=== PATIENT | female | born 1945 | race Two or more races ===

== ENCOUNTER 2020-02-19 22:06 | Inpatient (IN) | payer MEDICARE, OTHER ==
[~2020-02-19] VITALS: Ht 160 cm; Wt 86.4 kg
[2020-02-19 22:10] VITALS: BP 155/91
--- NOTE | 2020-02-19 22:31 | Emergency Room Report ---
History of Present Illness General Chief Complaint: Syncope Source: Patient, EMS Present Illness HPI This is a 74-year-old female with a history of diabetes and high blood pressure. She presents with complaint of syncope. She got up and had a syncopal episode. EMS stated that family said that she passed out for about 10 seconds. Better when she lay down. No trauma. When they stood her up to go to the gurney she felt dizzy and lightheaded and had a near syncopal episode. She denies any chest pain. She does have left shoulder pain. She fell last week and had a fracture and was in a sling. No head trauma. No focal deficit. Worse with standing. Better with rest. 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 Patient History Past Medical History: see triage record, old chart reviewed, DM, HTN Past Surgical History: other Pertinent Family History: none Social History: Denies: smoking Last Menstrual Period: unk Now: No Immunizations: other Reviewed Nursing Documentation: PMH: Agreed; PSxH: Agreed Nursing Documentation-PMH Hx Hypertension: Yes Hx Diabetes: Yes Review of Systems Constitutional: Reports: weakness Eye: Denies: eye pain, blurred vision ENT: Denies: ear pain, nose congestion, throat swelling Respiratory: Denies: cough, shortness of breath Cardiovascular: Denies: chest pain, palpitations Gastrointestinal: Denies: abdominal pain, diarrhea, nausea, vomiting Musculoskeletal: Denies: back pain, joint pain Skin: Denies: rash Neurological: Denies: headache, numbness Endocrine: Denies: increased thirst, increased urine Hematologic/Lymphatic: Denies: easy bruising All Other Systems: negative except mentioned in HPI Physical Exam Vital Signs Date Time Temp Pulse Resp B/P (MAP) Pulse Ox O2 Delivery O2 Flow Rate FiO2 02/19/20 22:01 130 19 150/96 (114) 98 Room Air Vitals with high blood pressure and tachycardia Sp02 EP Interpretation: reviewed, normal General Appearance: well appearing, no apparent distress, alert Head: normocephalic, atraumatic Eyes: bilateral eye PERRL, bilateral eye EOMI ENT: hearing grossly normal, normal pharynx Neck: full range of motion, supple, no meningismus Respiratory: chest non-tender, lungs clear, normal breath sounds Cardiovascular #1: regular rate, rhythm, no murmur Gastrointestinal: normal bowel sounds, non tender, no mass, no organomegaly, no bruit, non-distended Musculoskeletal: back normal, normal range of motion, gait/station normal Psychiatric: mood/affect normal Procedures Critical Care Time Critical Care Time Critical care is mandated in this patient who presented with sepsis and COVID infection. Patient require my urgent intervention to attenuate the risks of metabolic collapse which may lead to cardiovascular collapse and . Critical care time is 35 minutes excluding any reportable procedure. Critical care time included evaluation, multiple reevaluation, looking at old charts, interpreting laboratory and diagnostic data, discussing case with patient and family and consultants, and charting. Medical Decision Making Diagnostic Impression: Primary Impression: Syncope Qualified Codes: R55 - Syncope and collapse Additional Impressions: Sepsis Qualified Codes: A41.9 - Sepsis, unspecified organism COVID-19 virus infection UTI (urinary tract infection) Qualified Codes: N30.00 - Acute cystitis without hematuria ACS (acute coronary syndrome) ER Course This patient presents with syncope. Noted to be tachycardic and had a fever here. She is COVID positive. Chest x-ray is clear. She does have a urinary tract infection. Antibiotics given. Because of the COVID infection, she received steroid and Lovenox. EKG shows some nonspecific ST changes. Troponin is intermediate. Aspirin given here. I discussed the case with Dr. Bradley who will admit. EKG Diagnostic Results Rate: tachycardiac Rhythm: NSR ST Segments: other - Nonspecific ST changes inferiorly. Rhythm Strip Diag. Results EP Interpretation: yes Rate: 105 Rhythm: NSR, no PVC's, no ectopy Chest X-Ray Diagnostic Results Chest X-Ray Diagnostic Results : Chest X-Ray Ordered: Yes # of Views/Limited/Complete: 1 View Indication: Shortness of Breath EP Interpretation: Yes Interpretation: no consolidation, no effusion, no pneumothorax, no acute cardiopulmonary disease Impression: No acute disease Electronically Signed by: Go Rdz MD Last Vital Signs Date Time Temp Pulse Resp B/P (MAP) Pulse Ox O2 Delivery O2 Flow Rate FiO2 02/19/20 22:01 130 19 150/96 (114) 98 Room Air Status: improved Disposition: ADMITTED INPATIENT Condition: Serious Go Rdz MD Feb 19, 2020 22:31
[2020-02-19 22:45] LABS: HEMATOCRIT 32.6 % (37.0-47.0); HEMOGLOBIN 10.1 G/DL (12.0-16.0); MEAN CORPUSCULAR VOLUME 115 FL (80-99); PLATELET COUNT 350 K/UL (150-450); RED BLOOD COUNT 2.84 M/UL (4.20-5.40); RED CELL DISTRIBUTION WIDTH 19.1 % (11.6-14.8); WHITE BLOOD COUNT 2.6 K/UL (4.8-10.8)
[2020-02-19] MEDS ORDERED: Acetaminophen 500mg (ES) tab ORAL ONE (22:45)
--- NOTE | 2020-02-19 22:47 | Diagnostic Imaging Report ---
EXAM: XR Chest, 1 View CLINICAL HISTORY: SYNCOPE TECHNIQUE: Frontal view of the chest. COMPARISON: No relevant prior studies available. FINDINGS: Study limited to single AP portable chest radiograph. Borderline to mild cardiac enlargement. Prominence of the upper mediastinum may be secondary to supine and portable radiography. Recommend upright PA and lateral views of the chest when clinically feasible. Negative for focal consolidation, pneumothorax or pleural fluid collections.
[2020-02-19 23:00] LABS: ANION GAP 11 mmol/L (5-15); BLOOD UREA NITROGEN 25 mg/dL (7-18); CARBON DIOXIDE 25 MMOL/L (21-32); CHLORIDE 97 MMOL/L (98-107); POTASSIUM 3.2 MMOL/L (3.5-5.1); SODIUM 133 MMOL/L (136-145)
[2020-02-19 23:06] LABS: APPEARANCE,URINE SLIGHTLY CLOUDY; BILIRUBIN, URINE NEGATIVE (NEGATIVE); GLUCOSE, URINE (UA) NEGATIVE (NEGATIVE); KETONES,URINE 1+ (NEGATIVE); LEUKOCYTE ESTERASE ,URINE 3+ (NEGATIVE); NITRITE,URINE NEGATIVE (NEGATIVE); PH,URINE 5 (4.5-8.0); PROTEIN,URINE 3+ (NEGATIVE); UROBILINOGEN,URINE 1 MG/DL (0.0-1.0)
[2020-02-19 23:08] LABS: COLOR,URINE YELLOW
[2020-02-19 23:11] LABS: ALANINE AMINOTRANSFERASE 30 U/L (12-78); ALBUMIN 3.1 G/DL (3.4-5.0); ALBUMIN/GLOBULIN RATIO 0.8 (1.0-2.7); ALKALINE PHOSPHATASE 88 U/L (46-116); ASPARTATE AMINO TRANSFERASE 60 U/L (15-37)
[2020-02-19 23:30] VITALS: BP 121/65
[2020-02-19] MEDS ORDERED: cefTRIAXone 1 GM in NS 55 ML IVPB ONE (23:45)
[2020-02-20] MEDS ORDERED: Enoxaparin 80mg Inj SUBQ ONE
[2020-02-20] MEDS ORDERED: dexAMETHasone 10mg/ml Inj IV ONE
[2020-02-20] MEDS ORDERED: METFORMIN HCL850 M1 ORAL (00:15)
[2020-02-20] MEDS ORDERED: HYDREA500 MG PO (00:15)
[2020-02-20] MEDS ORDERED: HYDRALAZINE HCL50 MG ORAL (00:15)
[2020-02-20] MEDS ORDERED: METOPROLOL SUCC50 MG ORAL (00:15)
[2020-02-20] MEDS ORDERED: OMEPRAZOLE20 M2 ORAL (00:16)
[2020-02-20] MEDS ORDERED: LEVOTHYROXINE75 MCG ORAL (00:16)
[2020-02-20 00:30] VITALS: BP 105/64
[2020-02-20] MEDS ORDERED: Aspirin Baby 81mg ORAL ONE (00:30)
--- NOTE | 2020-02-20 00:43 | Emergency Room Report ---
Sepsis Event Note Evaluation Current Stage of Sepsis: Sepsis Possible Source: Genitourinary Focused Exam Allergies: Coded Allergies: No Known Allergies (Unverified , 02/19/20) Date Exam Occurred: Feb 20, 2020 Time Exam Occurred: 00:42 Laboratory Studies Laboratory Tests Test 02/19/20 22:20 02/19/20 22:55 White Blood Count 2.6 K/UL (4.8-10.8) L Red Blood Count 2.84 M/UL (4.20-5.40) L Hemoglobin 10.1 G/DL (12.0-16.0) L Hematocrit 32.6 % (37.0-47.0) L Mean Corpuscular Volume 115 FL (80-99) H Mean Corpuscular Hemoglobin 35.6 PG (27.0-31.0) H Mean Corpuscular Hemoglobin Concent 31.0 G/DL (32.0-36.0) L Red Cell Distribution Width 19.1 % (11.6-14.8) H Platelet Count 350 K/UL (150-450) Mean Platelet Volume 9.1 FL (6.5-10.1) Neutrophils (%) (Auto) % (45.0-75.0) Lymphocytes (%) (Auto) % (20.0-45.0) Monocytes (%) (Auto) % (1.0-10.0) Eosinophils (%) (Auto) % (0.0-3.0) Basophils (%) (Auto) % (0.0-2.0) Differential Total Cells Counted 100 Neutrophils % (Manual) 72 % (45-75) Lymphocytes % (Manual) 22 % (20-45) Monocytes % (Manual) 6 % (1-10) Eosinophils % (Manual) 0 % (0-3) Basophils % (Manual) 0 % (0-2) Band Neutrophils 0 % (0-8) Platelet Estimate Adequate Platelet Morphology Normal Hypochromasia 1+ Anisocytosis 1+ Macrocytosis 1+ D-Dimer 17.96 mg/L FEU (0.00-0.49) H Sodium Level 133 MMOL/L (136-145) L Potassium Level 3.2 MMOL/L (3.5-5.1) L Chloride Level 97 MMOL/L (98-107) L Carbon Dioxide Level 25 MMOL/L (21-32) Anion Gap 11 mmol/L (5-15) Blood Urea Nitrogen 25 mg/dL (7-18) H Creatinine 1.0 MG/DL (0.55-1.30) Estimat Glomerular Filtration Rate 54.5 mL/min (>60) Glucose Level 227 MG/DL (74-106) H Calcium Level 8.0 MG/DL (8.5-10.1) L Ferritin 253 NG/ML (8-388) Total Bilirubin 1.0 MG/DL (0.2-1.0) Aspartate Amino Transf (AST/SGOT) 60 U/L (15-37) H Alanine Aminotransferase (ALT/SGPT) 30 U/L (12-78) Alkaline Phosphatase 88 U/L (46-116) Troponin I 0.291 ng/mL (0.000-0.056) C-Reactive Protein, Quantitative 5.0 mg/dL (0.00-0.90) H Pro-B-Type Natriuretic Peptide 1450 pg/mL (0-125) H Total Protein 6.8 G/DL (6.4-8.2) Albumin 3.1 G/DL (3.4-5.0) L Globulin 3.7 g/dL Albumin/Globulin Ratio 0.8 (1.0-2.7) L Urine Color Yellow Urine Appearance Slightly cloudy Urine pH 5 (4.5-8.0) Urine Specific [place] 1.020 (1.005-1.035) Urine Protein 3+ (NEGATIVE) H Urine Glucose (UA) Negative (NEGATIVE) Urine Ketones 1+ (NEGATIVE) H Urine Blood 1+ (NEGATIVE) H Urine Nitrite Negative (NEGATIVE) Urine Bilirubin Negative (NEGATIVE) Urine Urobilinogen 1 MG/DL (0.0-1.0) H Urine Leukocyte Esterase 3+ (NEGATIVE) H Urine RBC 2-4 /HPF (0 - 2) H Urine WBC 20-30 /HPF (0 - 2) H Urine Squamous Epithelial Cells Occasional /LPF Urine Bacteria Few /HPF (NONE) Urine Mucus Occasional /LPF Lactic Acid Level 1.00 mmol/L (0.4-2.0) Vital Signs Last 24 Hour Vital Signs Date Time Temp Pulse Resp B/P (MAP) Pulse Ox O2 Delivery O2 Flow Rate FiO2 02/19/20 23:30 100.9 127 28 121/65 100 Nasal Cannula 2.0 02/19/20 23:29 100.9 02/19/20 22:10 99.5 132 19 155/91 95 Room Air 02/19/20 22:01 130 19 150/96 (114) 98 Room Air Respiratory Exam: Clear Cardiovascular Exam: RRR, S1 Capillary Refill: Less Than 2 Seconds Peripheral Pulse: Strong Pulse Location: Radial Skin Exam: Normal Turgor Go Rdz MD Feb 20, 2020 00:43
[2020-02-20 04:00] VITALS: BP 183/108
[2020-02-20] MEDS: HydrALAZINE 50mg tab ORAL SCH ×3 (05:42→21:18)
[2020-02-20] MEDS: NovoLOG Insulin Flexpen SUBQ SCH ×4 (05:43→21:25)
[2020-02-20 08:00] VITALS: BP 152/78
[2020-02-20] MEDS: Metoprolol Succinate XL 50mg tab ORAL SCH (09:04)
[2020-02-20 11:41] VITALS: BP 160/82
[2020-02-20] MEDS: Hydroxyurea 500mg cap ORAL SCH (11:51)
[2020-02-20] MEDS: Enoxaparin 100mg Inj SUBQ SCH ×2 (11:53→23:27)
--- NOTE | 2020-02-20 13:40 | Infectious Diseases Prog Note ---
Assessment/Plan Assessment/Plan Full consult dictated: A) 1) covid-19 infection +, fevers 2) ? bacterial pna 3) pmh noted 4) allergies - nkda P) 1) ceftriaxone and azithromycin 2) monitor respiratory status 3) may need steroids, remdesivir if becomes hypoxic 4) monitor labs and chest x-ray 5) thank you Subjective Allergies: Coded Allergies: No Known Allergies (Unverified , 02/19/20) Objective Last 24 Hour Vital Signs Date Time Temp Pulse Resp B/P (MAP) Pulse Ox O2 Delivery O2 Flow Rate FiO2 02/20/20 12:00 84 02/20/20 11:41 97.3 89 20 160/82 (108) 95 02/20/20 09:04 107 152/78 02/20/20 09:00 Nasal Cannula 2.0 02/20/20 08:00 97.3 108 20 152/78 (102) 91 02/20/20 08:00 107 02/20/20 05:42 183/108 02/20/20 04:00 90 02/20/20 04:00 96.7 90 19 183/108 (133) 98 02/20/20 01:10 100.0 106 22 116/60 99 Nasal Cannula 2.0 02/20/20 00:53 Nasal Cannula 2.0 02/20/20 00:30 100.0 105 20 105/64 100 Nasal Cannula 2.0 02/20/20 00:00 114 02/19/20 23:30 100.9 127 28 121/65 100 Nasal Cannula 2.0 02/19/20 23:29 100.9 02/19/20 22:30 132 19 Nasal Cannula 2.0 02/19/20 22:10 99.5 132 19 155/91 95 Room Air 02/19/20 22:01 130 19 150/96 (114) 98 Room Air Height (Feet): 5 Height (Inches): 3.00 Weight (Pounds): 190 Microbiology Date/Time Source Procedure Growth Status 02/19/20 22:20 Nasopharynx SARS-CoV-2 RdRp Gene Assay - Final Complete Laboratory Tests Test 02/19/20 22:20 02/19/20 22:55 02/20/20 05:35 02/20/20 11:19 White Blood Count 2.6 K/UL (4.8-10.8) L Red Blood Count 2.84 M/UL (4.20-5.40) L Hemoglobin 10.1 G/DL (12.0-16.0) L Hematocrit 32.6 % (37.0-47.0) L Mean Corpuscular Volume 115 FL (80-99) H Mean Corpuscular Hemoglobin 35.6 PG (27.0-31.0) H Mean Corpuscular Hemoglobin Concent 31.0 G/DL (32.0-36.0) L Red Cell Distribution Width 19.1 % (11.6-14.8) H Platelet Count 350 K/UL (150-450) Mean Platelet Volume 9.1 FL (6.5-10.1) Neutrophils (%) (Auto) % (45.0-75.0) Lymphocytes (%) (Auto) % (20.0-45.0) Monocytes (%) (Auto) % (1.0-10.0) Eosinophils (%) (Auto) % (0.0-3.0) Basophils (%) (Auto) % (0.0-2.0) Differential Total Cells Counted 100 Neutrophils % (Manual) 72 % (45-75) Lymphocytes % (Manual) 22 % (20-45) Monocytes % (Manual) 6 % (1-10) Eosinophils % (Manual) 0 % (0-3) Basophils % (Manual) 0 % (0-2) Band Neutrophils 0 % (0-8) Platelet Estimate Adequate Platelet Morphology Normal Hypochromasia 1+ Anisocytosis 1+ Macrocytosis 1+ D-Dimer 17.96 mg/L FEU (0.00-0.49) H Sodium Level 133 MMOL/L (136-145) L Potassium Level 3.2 MMOL/L (3.5-5.1) L Chloride Level 97 MMOL/L (98-107) L Carbon Dioxide Level 25 MMOL/L (21-32) Anion Gap 11 mmol/L (5-15) Blood Urea Nitrogen 25 mg/dL (7-18) H Creatinine 1.0 MG/DL (0.55-1.30) Estimat Glomerular Filtration Rate 54.5 mL/min (>60) Glucose Level 227 MG/DL (74-106) H Calcium Level 8.0 MG/DL (8.5-10.1) L Ferritin 253 NG/ML (8-388) Total Bilirubin 1.0 MG/DL (0.2-1.0) Aspartate Amino Transf (AST/SGOT) 60 U/L (15-37) H Alanine Aminotransferase (ALT/SGPT) 30 U/L (12-78) Alkaline Phosphatase 88 U/L (46-116) Troponin I 0.291 ng/mL (0.000-0.056) C-Reactive Protein, Quantitative 5.0 mg/dL (0.00-0.90) H Pro-B-Type Natriuretic Peptide 1450 pg/mL (0-125) H Total Protein 6.8 G/DL (6.4-8.2) Albumin 3.1 G/DL (3.4-5.0) L Globulin 3.7 g/dL Albumin/Globulin Ratio 0.8 (1.0-2.7) L Urine Color Yellow Urine Appearance Slightly cloudy Urine pH 5 (4.5-8.0) Urine Specific [place] 1.020 (1.005-1.035) Urine Protein 3+ (NEGATIVE) H Urine Glucose (UA) Negative (NEGATIVE) Urine Ketones 1+ (NEGATIVE) H Urine Blood 1+ (NEGATIVE) H Urine Nitrite Negative (NEGATIVE) Urine Bilirubin Negative (NEGATIVE) Urine Urobilinogen 1 MG/DL (0.0-1.0) H Urine Leukocyte Esterase 3+ (NEGATIVE) H Urine RBC 2-4 /HPF (0 - 2) H Urine WBC 20-30 /HPF (0 - 2) H Urine Squamous Epithelial Cells Occasional /LPF Urine Bacteria Few /HPF (NONE) Urine Mucus Occasional /LPF Lactic Acid Level 1.00 mmol/L (0.4-2.0) POC Whole Blood Glucose 207 MG/DL (74-106) H 251 MG/DL (74-106) H Current Medications Medications (Trade) Dose Ordered Sig/Luis Miguel Route PRN Reason Start Time Stop Time Status Last Admin Dose Admin Dextrose (Dextrose 50%) 25 ml Q30M PRN IV Hypoglycemia 02/20/20 02:45 05/20/20 02:44 Dextrose (Dextrose 50%) 50 ml Q30M PRN IV Hypoglycemia 02/20/20 02:45 05/20/20 02:44 Enoxaparin Sodium (Lovenox) 90 mg Q12H SUBQ 02/20/20 12:00 05/20/20 11:59 02/20/20 11:53 Hydralazine HCl (Apresoline) 50 mg Q8HR ORAL 02/20/20 06:00 05/20/20 05:59 02/20/20 05:42 Hydroxyurea (Hydrea) 500 mg DAILY ORAL 02/20/20 11:45 02/25/20 11:44 02/20/20 11:51 Insulin Aspart (NovoLOG) BEFORE MEALS AND HS SUBQ 02/20/20 06:30 05/20/20 06:29 02/20/20 11:32 Metformin HCl (Glucophage) 850 mg DAILY ORAL 02/20/20 09:00 03/21/20 08:59 02/20/20 09:03 Metoprolol Succinate (Toprol XL) 50 mg DAILY ORAL 02/20/20 09:00 05/20/20 08:59 02/20/20 09:04 Pantoprazole (Protonix) 40 mg DAILY ORAL 02/20/20 09:00 03/21/20 08:59 02/20/20 09:02 Edwina Gan MD Feb 20, 2020 13:40
[2020-02-20 16:00] VITALS: BP 135/76
--- NOTE | 2020-02-20 16:00 | History and Physical Report ---
DATE OF ADMISSION: 02/19/2020 HISTORY OF PRESENT ILLNESS: This is a 74-year-old female with a history of hypertension, diabetes. She had presented to an outside hospital in the last week after having had a syncopal episode at that time. She suffered a fracture of her left arm and was placed in a sling. This is a nonoperative fracture. The patient again had a syncopal episode yesterday and came to this hospital. At this time, she is feeling better. In this hospital, she has also been noted to be COVID-19 positive. She is currently in isolation. Saturations dropped to 87% on room air. PAST HISTORY: Diabetes mellitus and hypertension. SOCIAL HISTORY: No alcohol or tobacco usage. SURGERIES: None. REVIEW OF SYSTEMS: The patient denies any headache, hematemesis, melena, or hematochezia. PHYSICAL EXAMINATION: GENERAL: A 74-year-old female. HEENT: Unremarkable. LUNGS: Clear breath sounds bilaterally. HEART: Normal heart sounds. ABDOMEN: Soft. EXTREMITIES: There is no edema. VITAL SIGNS: Blood pressure is 150/90, heart rate 110, respirations 18, and O2 saturation 92% on 2 L of oxygen. LABORATORY DATA: Lab testing shows hemoglobin of 10, hypochromic indices, white count 2.6, platelet count is normal. Glucose 207. Troponin 0.29. Potassium 3.2. Coags show a D-dimer of 17. Urinalysis negative except a few pus cells. X-ray of chest shows no major findings. IMPRESSION: 1. COVID-19 pneumonia. 2. Elevated D-dimer. 3. Diabetes mellitus. 4. Hypertension. 5. Left elbow fracture. DISCUSSION: Admit to the hospital. We will start full-dose Lovenox given high D-dimer and COVID-19 pneumonia. We will consult ID regarding use of Decadron and remdesivir. Continue current medications and care. We will follow carefully. Flaquito Bradley M.D. DR: MOSHE JOB#: [id number] CC:
[2020-02-20 20:00] VITALS: BP 141/72
[2020-02-20] MEDS: Doxycycline Monohydrate 100mg ORAL SCH (21:17)
[2020-02-20] MEDS: cefTRIAXone 1 GM in D5W 50 ML IVPB SCH (23:26)
[2020-02-21] VITALS: BP 150/78
[2020-02-21 04:00] VITALS: BP_SYST 140; BP_SYST 154; BP_DIAS 50; BP_DIAS 80
[2020-02-21] MEDS: HydrALAZINE 50mg tab ORAL SCH ×3 (05:47→21:43)
[2020-02-21] MEDS: NovoLOG Insulin Flexpen SUBQ SCH ×4 (05:49→21:46)
[2020-02-21 07:15] LABS: HEMATOCRIT 35.2 % (37.0-47.0); HEMOGLOBIN 10.8 G/DL (12.0-16.0); MEAN CORPUSCULAR VOLUME 112 FL (80-99); PLATELET COUNT 357 K/UL (150-450); RED BLOOD COUNT 3.13 M/UL (4.20-5.40); RED CELL DISTRIBUTION WIDTH 18.3 % (11.6-14.8); WHITE BLOOD COUNT 3.4 K/UL (4.8-10.8)
[2020-02-21 07:31] LABS: ANION GAP 7 mmol/L (5-15); BLOOD UREA NITROGEN 16 mg/dL (7-18); CARBON DIOXIDE 31 MMOL/L (21-32); CHLORIDE 102 MMOL/L (98-107); CREATININE 0.8 MG/DL (0.55-1.30); POTASSIUM 3.7 MMOL/L (3.5-5.1); SODIUM 140 MMOL/L (136-145)
[2020-02-21 08:00] VITALS: BP 154/70
[2020-02-21] MEDS: Metoprolol Succinate XL 50mg tab ORAL SCH (08:49)
[2020-02-21] MEDS: Doxycycline Monohydrate 100mg ORAL SCH ×2 (08:50→21:42)
[2020-02-21] MEDS: Hydroxyurea 500mg cap ORAL SCH (08:50)
--- NOTE | 2020-02-21 09:01 | Pulmonology Progress Note ---
Subjective Interval Events: Trop elevated noted Constitutional: Reports: no symptoms HEENT: Repors: no symptoms Respiratory: Reports: no symptoms Cardiovascular: Reports: no symptoms Gastrointestinal/Abdominal: Reports: no symptoms Allergies: Coded Allergies: No Known Allergies (Unverified , 02/19/20) Objective Last 24 Hour Vital Signs Date Time Temp Pulse Resp B/P (MAP) Pulse Ox O2 Delivery O2 Flow Rate FiO2 02/21/20 08:49 105 158/88 02/21/20 08:00 105 02/21/20 05:47 158/88 02/21/20 04:00 94 02/21/20 04:00 99.0 88 20 154/80 (104) 95 02/21/20 00:00 84 02/21/20 00:00 97.8 84 20 150/78 (102) 96 02/20/20 21:18 157/84 02/20/20 21:00 Nasal Cannula 2.0 02/20/20 20:00 96.3 87 20 141/72 (95) 93 02/20/20 20:00 86 02/20/20 19:52 95 Nasal Cannula 3.0 32 02/20/20 16:00 96.8 86 20 135/76 (95) 94 02/20/20 16:00 83 02/20/20 14:06 160/82 02/20/20 12:00 84 02/20/20 11:41 97.3 89 20 160/82 (108) 95 02/20/20 09:04 107 152/78 02/20/20 09:00 Nasal Cannula 2.0 Intake and Output 02/20/20 02/21/20 19:00 07:00 Intake Total 240 ml 500 ml Output Total 300 ml 500 ml Balance -60 ml 0 ml Intake Oral 240 ml 500 ml Output Urine Total 300 ml 500 ml # Voids 2 2 # Bowel Movements 2 General Appearance: no acute distress HEENT: normocephalic Respiratory: chest wall non-tender, lungs clear Cardiovascular: normal peripheral pulses Abdomen: normal bowel sounds Microbiology Date/Time Source Procedure Growth Status 02/19/20 23:10 Blood Blood Culture - Preliminary NO GROWTH AFTER 24 HOURS Resulted 02/19/20 22:40 Blood Blood Culture - Preliminary NO GROWTH AFTER 24 HOURS Resulted 02/19/20 22:20 Nasopharynx SARS-CoV-2 RdRp Gene Assay - Final Complete 02/19/20 22:55 Urine,Clean Catch Urine Culture - Preliminary NO GROWTH AFTER 24 HOURS Resulted Laboratory Tests 02/20/20 11:19: POC Whole Blood Glucose 251H 02/20/20 16:19: POC Whole Blood Glucose 214H 02/20/20 19:41: POC Whole Blood Glucose 208H 02/21/20 05:25: POC Whole Blood Glucose 180H 02/21/20 07:01: White Blood Count 3.4L, Red Blood Count 3.13L, Hemoglobin 10.8L, Hematocrit 35.2L, Mean Corpuscular Volume 112H, Mean Corpuscular Hemoglobin 34.5H, Mean Corpuscular Hemoglobin Concent 30.7L, Red Cell Distribution Width 18.3H, Platelet Count 357, Mean Platelet Volume 7.4, Neutrophils (%) (Auto) , Lymphocytes (%) (Auto) , Monocytes (%) (Auto) , Eosinophils (%) (Auto) , Basophils (%) (Auto) , Neutrophils % (Manual) [Pending], Lymphocytes % (Manual) [Pending], Platelet Estimate [Pending], Platelet Morphology [Pending], Sodium Level 140, Potassium Level 3.7, Chloride Level 102, Carbon Dioxide Level 31, Anion Gap 7, Blood Urea Nitrogen 16, Creatinine 0.8, Estimat Glomerular Filtration Rate > 60, Glucose Level 198H, Calcium Level 8.0L, Troponin I 0.186H Current Medications Medications (Trade) Dose Ordered Sig/Luis Miguel Route PRN Reason Start Time Stop Time Status Last Admin Dose Admin Ceftriaxone Sodium 1 gm/ Dextrose 50 ml @ 100 mls/hr Q24H IVPB 02/20/20 23:00 02/27/20 22:59 02/20/20 23:26 Dextrose (Dextrose 50%) 25 ml Q30M PRN IV Hypoglycemia 02/20/20 02:45 05/20/20 02:44 Dextrose (Dextrose 50%) 50 ml Q30M PRN IV Hypoglycemia 02/20/20 02:45 05/20/20 02:44 Doxycycline Monohydrate (Doxycycline Monohydrate) 100 mg EVERY 12 HOURS ORAL 02/20/20 21:00 02/27/20 20:59 02/21/20 08:50 Enoxaparin Sodium (Lovenox) 90 mg Q12H SUBQ 02/20/20 12:00 05/20/20 11:59 02/20/20 23:27 Hydralazine HCl (Apresoline) 50 mg Q8HR ORAL 02/20/20 06:00 05/20/20 05:59 02/21/20 05:47 Hydroxyurea (Hydrea) 500 mg DAILY ORAL 02/20/20 11:45 02/25/20 11:44 02/21/20 08:50 Insulin Aspart (NovoLOG) BEFORE MEALS AND HS SUBQ 02/20/20 06:30 05/20/20 06:29 02/21/20 05:49 Levothyroxine Sodium (Synthroid) 75 mcg 0630 ORAL 02/21/20 09:00 03/22/20 08:59 02/21/20 08:50 Metformin HCl (Glucophage) 850 mg DAILY ORAL 02/20/20 09:00 03/21/20 08:59 02/21/20 08:50 Metoprolol Succinate (Toprol XL) 50 mg DAILY ORAL 02/20/20 09:00 05/20/20 08:59 02/21/20 08:49 Pantoprazole (Protonix) 40 mg DAILY ORAL 02/20/20 09:00 03/21/20 08:59 02/21/20 08:50 Assessment/Plan Assessment/Plan IMPRESSION: 1. COVID-19 pneumonia. 2. Elevated D-dimer. 3. Diabetes mellitus. 4. Hypertension. 5. Left elbow fracture. 6. Troponin leak. DISCUSSION: Admit to the hospital. Continue full-dose Lovenox given high D-dimer and COVID-19 pneumonia. Seen by ID regarding use of Decadron and remdesivir. Continue current medications and care. I will follow carefully. Will consult cardiology. Meaghan Medrano Omar Syed MD Feb 21, 2020 09:01
--- NOTE | 2020-02-21 11:07 | Diagnostic Imaging Report ---
EXAM: XR Chest, 1 View CLINICAL HISTORY: INFECT TECHNIQUE: Frontal view of the chest. COMPARISON: Chest radiograph on 02/19/2020. FINDINGS: Hardware: None. Lungs/pleura: Prominent lung markings may be secondary to low lung volumes and crowding of bronchovascular structures. Infectious/ inflammatory process is not excluded. No pleural effusion or pneumothorax. Heart/mediastinum: Stable mild enlargement of the cardiomediastinal silhouette. Soft tissues: Unremarkable. Bones: No acute fracture. Upper abdomen: Normal. IMPRESSION: Prominent lung markings may be secondary to low lung volumes and crowding of bronchovascular structures. Infectious/ inflammatory process is not excluded.
[2020-02-21] MEDS: Enoxaparin 100mg Inj SUBQ SCH ×2 (11:56→23:26)
[2020-02-21 12:00] VITALS: BP 178/83
[2020-02-21] MEDS ORDERED: IV Preparation Fee MISC PRN (13:15)
[2020-02-21] MEDS ORDERED: Remdesivir Fact Sheet MISC SCH (13:15)
[2020-02-21 16:00] VITALS: BP 126/63
[2020-02-21] MEDS ORDERED: Loading Dose:Remdesivir 200mg/NS 210ml IV SCH ×2 (16:00)
--- NOTE | 2020-02-21 18:14 | Infectious Diseases Prog Note ---
Assessment/Plan Assessment/Plan Full consult dictated: A) 1) covid-19 infection +, fevers 2) ? bacterial pna 3) pmh noted 4) allergies - nkda P) 1) ceftriaxone, doxycycline - day # 2 2) steroids add remdesivir started - patient consented to remdesivir and clinically indicated at this time 3) monitor respiratory status 4) d/w Dr. Bradley and pharmacy 5) monitor labs and chest x-ray 6) will f/u Subjective Constitutional: Reports: fever, fatigue HEENT: Reports: congestion - mild Respiratory: Reports: shortness of breath - mild Cardiovascular: Denies: chest pain Gastrointestinal/Abdominal: Denies: nausea, vomiting Allergies: Coded Allergies: No Known Allergies (Unverified , 02/19/20) Objective Last 24 Hour Vital Signs Date Time Temp Pulse Resp B/P (MAP) Pulse Ox O2 Delivery O2 Flow Rate FiO2 02/21/20 16:00 100 02/21/20 16:00 98.9 99 20 126/63 (84) 95 02/21/20 13:46 178/83 02/21/20 12:26 97.9 02/21/20 12:00 106 02/21/20 12:00 100.0 106 20 178/83 (114) 94 02/21/20 09:00 Nasal Cannula 2.0 02/21/20 08:49 105 158/88 02/21/20 08:08 95 Nasal Cannula 2.0 28 02/21/20 08:00 97.3 104 22 154/70 (98) 94 02/21/20 08:00 105 02/21/20 05:47 158/88 02/21/20 04:00 94 02/21/20 04:00 99.0 88 20 154/80 (104) 95 02/21/20 00:00 84 02/21/20 00:00 97.8 84 20 150/78 (102) 96 02/20/20 21:18 157/84 02/20/20 21:00 Nasal Cannula 2.0 02/20/20 20:00 96.3 87 20 141/72 (95) 93 02/20/20 20:00 86 02/20/20 19:52 95 Nasal Cannula 3.0 32 Height (Feet): 5 Height (Inches): 3.00 Weight (Pounds): 190 General Appearance: no acute distress HEENT: normocephalic, atraumatic, anicteric Respiratory/Chest: no respiratory distress, no accessory muscle use Cardiovascular: normal rate, regular rhythm Abdomen: normal bowel sounds, soft, non tender, no organomegaly Microbiology Date/Time Source Procedure Growth Status 02/19/20 23:10 Blood Blood Culture - Preliminary NO GROWTH AFTER 24 HOURS Resulted 02/19/20 22:40 Blood Blood Culture - Preliminary NO GROWTH AFTER 24 HOURS Resulted 02/19/20 22:20 Nasopharynx SARS-CoV-2 RdRp Gene Assay - Final Complete 02/19/20 22:55 Urine,Clean Catch Urine Culture - Preliminary NO GROWTH AFTER 24 HOURS Resulted Laboratory Tests Test 02/20/20 19:41 02/21/20 05:25 02/21/20 07:01 02/21/20 16:15 POC Whole Blood Glucose 208 MG/DL (74-106) H 180 MG/DL (74-106) H 267 MG/DL (74-106) H White Blood Count 3.4 K/UL (4.8-10.8) L Red Blood Count 3.13 M/UL (4.20-5.40) L Hemoglobin 10.8 G/DL (12.0-16.0) L Hematocrit 35.2 % (37.0-47.0) L Mean Corpuscular Volume 112 FL (80-99) H Mean Corpuscular Hemoglobin 34.5 PG (27.0-31.0) H Mean Corpuscular Hemoglobin Concent 30.7 G/DL (32.0-36.0) L Red Cell Distribution Width 18.3 % (11.6-14.8) H Platelet Count 357 K/UL (150-450) Mean Platelet Volume 7.4 FL (6.5-10.1) Neutrophils (%) (Auto) % (45.0-75.0) Lymphocytes (%) (Auto) % (20.0-45.0) Monocytes (%) (Auto) % (1.0-10.0) Eosinophils (%) (Auto) % (0.0-3.0) Basophils (%) (Auto) % (0.0-2.0) Differential Total Cells Counted 100 Neutrophils % (Manual) 86 % (45-75) H Lymphocytes % (Manual) 9 % (20-45) L Monocytes % (Manual) 5 % (1-10) Eosinophils % (Manual) 0 % (0-3) Basophils % (Manual) 0 % (0-2) Band Neutrophils 0 % (0-8) Platelet Estimate Adequate Platelet Morphology Normal Hypochromasia 1+ Anisocytosis 2+ Macrocytosis 2+ Sodium Level 140 MMOL/L (136-145) Potassium Level 3.7 MMOL/L (3.5-5.1) Chloride Level 102 MMOL/L (98-107) Carbon Dioxide Level 31 MMOL/L (21-32) Anion Gap 7 mmol/L (5-15) Blood Urea Nitrogen 16 mg/dL (7-18) Creatinine 0.8 MG/DL (0.55-1.30) Estimat Glomerular Filtration Rate > 60 mL/min (>60) Glucose Level 198 MG/DL (74-106) H Calcium Level 8.0 MG/DL (8.5-10.1) L Troponin I 0.186 ng/mL (0.000-0.056) Current Medications Medications (Trade) Dose Ordered Sig/Luis Miguel Route PRN Reason Start Time Stop Time Status Last Admin Dose Admin Acetaminophen (Tylenol) 650 mg Q6H PRN ORAL Temp >100.5 02/21/20 11:45 03/22/20 11:44 02/21/20 11:56 Ceftriaxone Sodium 1 gm/ Dextrose 50 ml @ 100 mls/hr Q24H IVPB 02/20/20 23:00 02/27/20 22:59 02/20/20 23:26 Dexamethasone (Decadron) 6 mg DAILY ORAL 02/21/20 11:45 03/22/20 11:44 02/21/20 11:56 Dextrose (Dextrose 50%) 25 ml Q30M PRN IV Hypoglycemia 02/20/20 02:45 05/20/20 02:44 Dextrose (Dextrose 50%) 50 ml Q30M PRN IV Hypoglycemia 02/20/20 02:45 05/20/20 02:44 Doxycycline Monohydrate (Doxycycline Monohydrate) 100 mg EVERY 12 HOURS ORAL 02/20/20 21:00 02/27/20 20:59 02/21/20 08:50 Enoxaparin Sodium (Lovenox) 90 mg Q12H SUBQ 02/20/20 12:00 05/20/20 11:59 02/21/20 11:56 Hydralazine HCl (Apresoline) 50 mg Q8HR ORAL 02/20/20 06:00 05/20/20 05:59 02/21/20 13:46 Hydroxyurea (Hydrea) 500 mg DAILY ORAL 02/20/20 11:45 02/25/20 11:44 02/21/20 08:50 Insulin Aspart (NovoLOG) BEFORE MEALS AND HS SUBQ 02/20/20 06:30 05/20/20 06:29 02/21/20 16:24 Levothyroxine Sodium (Synthroid) 75 mcg 0630 ORAL 02/21/20 09:00 03/22/20 08:59 02/21/20 08:50 Metformin HCl (Glucophage) 850 mg DAILY ORAL 02/20/20 09:00 03/21/20 08:59 02/21/20 08:50 Metoprolol Succinate (Toprol XL) 50 mg DAILY ORAL 02/20/20 09:00 05/20/20 08:59 02/21/20 08:49 Pantoprazole (Protonix) 40 mg DAILY ORAL 02/20/20 09:00 03/21/20 08:59 02/21/20 08:50 Remdesivir 100 mg/ Sodium Chloride 250 ml @ 250 mls/hr Q24H IV 02/22/20 16:00 02/25/20 16:59 Edwina Gan MD Feb 21, 2020 18:14
[2020-02-21 20:00] VITALS: BP 125/61
--- NOTE | 2020-02-21 21:00 | Consultation ---
DATE OF CONSULTATION: 02/21/2020 CONSULTING PHYSICIAN: Edwina Gan MD. ATTENDING PHYSICIAN: Flaquito Bradley MD. REFERRING PHYSICIAN: Flaquito Bradley MD. REASON FOR CONSULTATION: COVID-19 virus infection and pneumonia. CHIEF COMPLAINT: The patient's chief complaint coming in to the hospital is COVID-19 virus infection, pneumonia, and fevers. HISTORY OF PRESENT ILLNESS: This is a very pleasant 74-year-old female who comes to [facility]. She has hypoxia. She tested positive for COVID-19 virus infection. This is a nasopharyngeal test nucleic acid testing. The patient has on chest x-ray interstitial markings. Infectious or inflammatory process is not excluded. The patient became hypoxic and the patient is being treated for community-acquired pneumonia and bacterial pneumonia with Rocephin and doxycycline. The patient was started on remdesivir today and also steroids, dexamethasone. Infectious Disease consultation was requested for antibiotic management. The patient was seen yesterday and today. MAR was noted. Orders were noted. Notes and records were reviewed. The patient is in COVID isolation. Discussed with RN, pharmacy and Dr. Bradley. REVIEW OF SYSTEMS: CONSTITUTIONAL: As discussed, she had fevers. She had some hypoxia. HEAD AND NECK: No head pain or neck pain. CARDIAC: No chest pain. GASTROINTESTINAL: No nausea, vomiting, or diarrhea. GENITOURINARY: No Cai. PULMONARY: Mild shortness of breath and cough. SKIN: No rash. NEUROLOGIC: No seizures. PAST MEDICAL HISTORY: The patient has a past medical history of diabetes mellitus and hypertension. Also left elbow fracture. She has a history of hypothyroidism. ALLERGIES: She has no known drug allergies and no antibiotic allergies. SOCIAL HISTORY: Negative for smoking, alcohol, or drug abuse. FAMILY HISTORY: Noncontributory. Negative for tuberculosis or cancer. MEDICATIONS: Upon reviewing the MAR, she is on following medications. She is on dexamethasone, remdesivir, levothyroxine, acetaminophen, Rocephin, and doxycycline. She is also on enoxaparin, hydroxyurea, metformin, metoprolol, pantoprazole, insulin, and hydralazine. Outside medications were noted and reconciliated. PHYSICAL EXAMINATION: VITAL SIGNS: Temperature is 98.9, pulse rate 99, respiratory rate 20, and blood pressure 126/63. Saturation 95%. Temperature maximum is 100.9 and pulse rate was high as 105. GENERAL: Alert and responsive, in no acute distress. She is on 2 L. She is sitting in the room. HEAD AND NECK: Oral exam, no thrush. Eye exam, no icterus. Normocephalic. Neck is supple. HEART: Regular. No gallop or murmur. ABDOMEN: Soft. Positive bowel sounds. Nontender. LUNGS: Bilateral rhonchi, possible rales. SKIN: No rash. MUSCULOSKELETAL: No effusion. Legs without cellulitis. PERIPHERAL VASCULAR: No cyanosis or gangrene. GENITOURINARY: No Cai. LINE SITES: Without phlebitis. NEUROLOGIC: Intact and nonfocal. Alert and oriented. LABORATORY DATA: White count is 3.4, hemoglobin 10.8, and platelet count 357,000. Creatinine is 1.0. LFTs were noted. C-reactive protein is 5. Ferritin 253. Blood cultures were negative to date. COVID-19 SARS testing is positive by nasopharyngeal nucleic acid testing. UA had 20-30 white blood cells. Blood cultures are negative. IMAGING STUDIES: Chest x-ray - prominent interstitial markings, possible infectious process, report was noted. ASSESSMENT AND PLAN: 1. The patient has COVID-19 virus infection, possible pneumonia, rule out community-acquired pneumonia, rule out UTI. She has fevers. At this time, we will continue Rocephin and doxycycline. It is day #2 for possible bacterial pneumonia and also urinary tract infection. Monitor fevers. Also remdesivir and dexamethasone started because of COVID-19 virus infection and possible pneumonia and hypoxia. Plan on five days of remdesivir. It is day #1 and dexamethasone, five to ten days. In addition Rocephin and doxycycline will continue for possible bacterial pneumonia pending urine culture results, also cover possible complicated UTI. Check followup labs, chest x-ray, and monitor fevers. Continue COVID-19 virus isolation for now. Case discussed with Dr. Bradley, the RN, and also pharmacy. The patient of note consents to remdesivir, as an investigational drug through her diplomatic interpreter/translator and she accepts the investigational drug and it is indicated at this time because of hypoxia. 2. Diabetes. 3. Hypertension. 4. Hypothyroidism. 5. Thyroid supplementation. 6. COVID isolation. 7. No known drug allergies. 8. Social history is negative. 9. Family history is noncontributory. 10. MAR was noted. 11. Case discussed with RN. 12. Blood sugar and blood pressure control for diabetes and hypertension per primary care team, Dr. Bradley. Thank you, I will follow. Edwina Gan M.D. DR: SANDI JOB#: [id number] CC: MADAN
[2020-02-21] MEDS: cefTRIAXone 1 GM in D5W 50 ML IVPB SCH (23:25)
[2020-02-22] VITALS: BP 155/74
--- NOTE | 2020-02-22 01:30 | Consultation ---
DATE OF CONSULTATION: 02/21/2020 CARDIOLOGY CONSULTATION CONSULTING PHYSICIAN: Bhanu Genao MD. REFERRING PHYSICIAN: Flaquito Bradley MD. REASON FOR CONSULTATION: Elevated troponin level. HISTORY OF PRESENT ILLNESS: This 74-year-old female presented to an outside hospital with a syncopal episode approximately a week ago. She apparently fell out and suffered a left arm fracture. A repeat syncopal episode occurred on the day prior to this admission. The patient was notably hypoxic and had COVID-19 swab positive and hospitalization initiated. It is not clear what workup she had at the outside facility with regard to her cardiovascular status. However, she does not note any history of chest pain or shortness of breath. Patient noted that she did feel dizzy and lightheaded when standing or sitting up and paramedics verified this with regard to her syncopal episode upon this presentation concerning however of the elevated troponin level. PAST MEDICAL HISTORY: Diabetes mellitus and hypertension. She is unaware of where she may have contracted COVID-19 and has not had any fevers, chills, cough, or sputum production. No headache. ALLERGIES: None known. MEDICATIONS: Reviewed and reconciled. SMOKING HISTORY: Negative for smoking, alcohol, or substance abuse. REVIEW OF SYSTEMS: A 10-point review of systems performed, all systems negative other than noted above. PHYSICAL EXAMINATION: VITAL SIGNS: In the emergency room on 02/19/2020, she had a blood pressure 150/96, heart rate of 130, and a respiratory rate of 19 with clinical signs of orthostasis. Today, blood pressure earlier 178/83, presently 126/63, heart rate 99, respiratory rate 20, afebrile. Monitored rhythm reviewed. Sinus and sinus tachycardia noted. Oxygen saturation on 2 L nasal cannula 97%. GENERAL: Patient is alert. No acute distress. HEENT: Oropharynx clear. NECK: Supple. No jugular venous distention grossly noted. LUNGS: Bilateral rhonchi. No wheezing. CARDIAC: Regular rhythm. Rapid rate. Normal S1, S2 with no murmur, rub, or gallop. ABDOMEN: Soft, nontender. EXTREMITIES: No clubbing, cyanosis, or edema. SKIN: Intact. NEUROLOGIC: Nonfocal. LABORATORY DATA: White count 3.4, hemoglobin 10.8, MCV elevated. Sodium 140, potassium 3.7, bicarb 31, BUN 18, creatinine 0.8, glucose 198. Troponin on admission was 0.291. Troponin today is 0.186. IMPRESSION: 1. COVID-19 pneumonia. 2. Orthostatic syncope due to hypovolemia. 3. Acute myocardial ischemia and possible non-ST elevation myocardial infarction, likely precipitated by coronary hypoperfusion in the setting of acute pulmonary infection with underlying atherosclerosis. 4. Type 2 diabetes mellitus with hyperglycemia. 5. Hypertensive heart disease with labile blood pressure. 6. Secondary sinus tachycardia. PLAN: 1. Antiviral therapy per Infectious Disease and primary care physician. 2. Full anticoagulation based on both cardiac and infectious disease parameters. 3. IV steroids with taper per check embosser. 4. Beta blockade with titration. 5. Insulin titration for optimization of glucose control while on steroids. 6. Antiplatelet therapy. 7. Echocardiogram to assess left ventricular function. 8. Defer ischemia workup at this time. Bhanu Genao M.D. DR: CAROLIN JOB#: [id number] CC:
[2020-02-22 04:00] VITALS: BP 147/75
[2020-02-22] MEDS: HydrALAZINE 50mg tab ORAL SCH ×3 (05:46→21:46)
[2020-02-22] MEDS: NovoLOG Insulin Flexpen SUBQ SCH ×4 (06:06→21:23)
[2020-02-22 06:59] LABS: HEMATOCRIT 35.7 % (37.0-47.0); HEMOGLOBIN 11.4 G/DL (12.0-16.0); MEAN CORPUSCULAR VOLUME 114 FL (80-99); PLATELET COUNT 325 K/UL (150-450); RED BLOOD COUNT 3.12 M/UL (4.20-5.40); WHITE BLOOD COUNT 3.7 K/UL (4.8-10.8)
[2020-02-22 08:00] VITALS: BP 157/82
[2020-02-22 08:05] LABS: ALANINE AMINOTRANSFERASE 28 U/L (12-78); ALBUMIN 2.8 G/DL (3.4-5.0); ALBUMIN/GLOBULIN RATIO 0.7 (1.0-2.7); ALKALINE PHOSPHATASE 79 U/L (46-116); ANION GAP 15 mmol/L (5-15); ASPARTATE AMINO TRANSFERASE 47 U/L (15-37); BILIRUBIN,DIRECT 0.1 MG/DL (0.0-0.3); BILIRUBIN,TOTAL 0.8 MG/DL (0.2-1.0); BLOOD UREA NITROGEN 18 mg/dL (7-18); CARBON DIOXIDE 21 MMOL/L (21-32); CHLORIDE 97 MMOL/L (98-107); POTASSIUM 3.5 MMOL/L (3.5-5.1); SODIUM 133 MMOL/L (136-145)
[2020-02-22] MEDS: Hydroxyurea 500mg cap ORAL SCH (09:23)
[2020-02-22] MEDS: Metoprolol Succinate XL 25mg tab ORAL SCH (09:23)
[2020-02-22] MEDS: Doxycycline Monohydrate 100mg ORAL SCH ×2 (09:23→21:23)
[2020-02-22 09:51] LABS: CREATININE 0.9 MG/DL (0.55-1.30)
[2020-02-22 09:52] LABS: CALCIUM 8.2 MG/DL (8.5-10.1)
--- NOTE | 2020-02-22 09:52 | Pulmonology Progress Note ---
Subjective Interval Events: Trop elevated noted Constitutional: Reports: fever, fatigue HEENT: Repors: no symptoms Respiratory: Reports: no symptoms Cardiovascular: Reports: no symptoms Gastrointestinal/Abdominal: Denies: nausea, vomiting Allergies: Coded Allergies: No Known Allergies (Unverified , 02/19/20) Objective Last 24 Hour Vital Signs Date Time Temp Pulse Resp B/P (MAP) Pulse Ox O2 Delivery O2 Flow Rate FiO2 02/22/20 09:23 108 157/82 02/22/20 08:00 97.9 108 20 157/82 (107) 94 02/22/20 05:46 157/77 02/22/20 04:00 91 02/22/20 04:00 98.2 98 20 147/75 (99) 95 02/22/20 00:00 94 02/22/20 00:00 97.8 82 20 155/74 (101) 96 02/21/20 21:43 125/61 02/21/20 21:00 Nasal Cannula 2.0 02/21/20 20:36 97 Nasal Cannula 2.0 28 02/21/20 20:00 92 02/21/20 20:00 97.7 84 20 125/61 (82) 97 02/21/20 16:00 100 02/21/20 16:00 98.9 99 20 126/63 (84) 95 02/21/20 13:46 178/83 02/21/20 12:26 97.9 02/21/20 12:00 106 02/21/20 12:00 100.0 106 20 178/83 (114) 94 Intake and Output 02/21/20 02/22/20 19:00 07:00 Intake Total 350 ml 360 ml Output Total 1800 ml Balance -1450 ml 360 ml Intake Oral 350 ml 360 ml Output Urine Total 1800 ml # Voids 1 4 General Appearance: no acute distress HEENT: normocephalic Respiratory: chest wall non-tender, lungs clear Cardiovascular: normal peripheral pulses Abdomen: normal bowel sounds Microbiology Date/Time Source Procedure Growth Status 02/19/20 23:10 Blood Blood Culture - Preliminary NO GROWTH AFTER 48 HOURS Resulted 02/19/20 22:40 Blood Blood Culture - Preliminary NO GROWTH AFTER 48 HOURS Resulted 02/19/20 22:20 Nasopharynx SARS-CoV-2 RdRp Gene Assay - Final Complete 02/19/20 22:55 Urine,Clean Catch Urine Culture - Final NO GROWTH AFTER 48 HOURS Complete Laboratory Tests 02/21/20 16:15: POC Whole Blood Glucose 267H 02/21/20 20:45: POC Whole Blood Glucose 294H 02/22/20 05:52: POC Whole Blood Glucose 199H 02/22/20 06:15: White Blood Count 3.7L, Red Blood Count 3.12L, Hemoglobin 11.4L, Hematocrit 35.7L, Mean Corpuscular Volume 114H, Mean Corpuscular Hemoglobin 36.6H, Mean Corpuscular Hemoglobin Concent 32.0, Red Cell Distribution Width 18.0H, Platelet Count 325, Mean Platelet Volume 7.3, Neutrophils (%) (Auto) , Lymphocytes (%) (Auto) , Monocytes (%) (Auto) , Eosinophils (%) (Auto) , Basophils (%) (Auto) , Neutrophils % (Manual) [Pending], Lymphocytes % (Manual) [Pending], Platelet Estimate [Pending], Platelet Morphology [Pending], Sodium Level 133L, Potassium Level 3.5, Chloride Level 97L, Carbon Dioxide Level 21, Anion Gap 15, Blood Urea Nitrogen 18, Creatinine [Pending], Estimat Glomerular Filtration Rate [Pending], Glucose Level 213H, Calcium Level [Pending], Magnesium Level 1.5L, Total Bilirubin 0.8, Direct Bilirubin 0.1, Aspartate Amino Transf (AST/SGOT) 47H, Alanine Aminotransferase (ALT/SGPT) 28, Alkaline Phosphatase 79, Pro-B-Type Natriuretic Peptide 1616H, Total Protein 7.0, Albumin 2.8L, Globulin 4.2, Albumin/Globulin Ratio 0.7L, Vitamin B12 Level [ Pending], Folate [Pending] 02/22/20 09:25: Troponin I [Pending] Current Medications Medications (Trade) Dose Ordered Sig/Luis Miguel Route PRN Reason Start Time Stop Time Status Last Admin Dose Admin Acetaminophen (Tylenol) 650 mg Q6H PRN ORAL Temp >100.5 02/21/20 11:45 03/22/20 11:44 02/21/20 11:56 Ceftriaxone Sodium 1 gm/ Dextrose 50 ml @ 100 mls/hr Q24H IVPB 02/20/20 23:00 02/27/20 22:59 02/21/20 23:25 Dexamethasone (Decadron) 6 mg DAILY ORAL 02/21/20 11:45 03/22/20 11:44 02/22/20 09:23 Dextrose (Dextrose 50%) 25 ml Q30M PRN IV Hypoglycemia 02/20/20 02:45 05/20/20 02:44 Dextrose (Dextrose 50%) 50 ml Q30M PRN IV Hypoglycemia 02/20/20 02:45 05/20/20 02:44 Doxycycline Monohydrate (Doxycycline Monohydrate) 100 mg EVERY 12 HOURS ORAL 02/20/20 21:00 02/27/20 20:59 02/22/20 09:23 Enoxaparin Sodium (Lovenox) 90 mg Q12H SUBQ 02/20/20 12:00 05/20/20 11:59 02/21/20 23:26 Hydralazine HCl (Apresoline) 50 mg Q8HR ORAL 02/20/20 06:00 05/20/20 05:59 02/22/20 05:46 Hydroxyurea (Hydrea) 500 mg DAILY ORAL 02/20/20 11:45 02/25/20 11:44 02/22/20 09:23 Insulin Aspart (NovoLOG) BEFORE MEALS AND HS SUBQ 02/20/20 06:30 05/20/20 06:29 02/22/20 06:06 Levothyroxine Sodium (Synthroid) 75 mcg 0630 ORAL 02/21/20 09:00 03/22/20 08:59 02/22/20 05:36 Metformin HCl (Glucophage) 850 mg DAILY ORAL 02/20/20 09:00 03/21/20 08:59 02/22/20 09:23 Metoprolol Succinate (Toprol XL) 75 mg DAILY ORAL 02/22/20 09:00 05/22/20 08:59 02/22/20 09:23 Pantoprazole (Protonix) 40 mg DAILY ORAL 02/20/20 09:00 03/21/20 08:59 02/22/20 09:23 Remdesivir 100 mg/ Sodium Chloride 250 ml @ 250 mls/hr Q24H IV 02/22/20 16:00 02/25/20 16:59 Assessment/Plan Assessment/Plan IMPRESSION: 1. COVID-19 pneumonia. 2. Elevated D-dimer. 3. Diabetes mellitus. 4. Hypertension. 5. Left elbow fracture. 6. Troponin leak. DISCUSSION: Continue full-dose Lovenox given high D-dimer and COVID-19 pneumonia. Seen by ID regarding use of Decadron and remdesivir. Continue current medications and care. I will follow carefully. Seen by cardiology. Meaghan Medrano Omar Syed MD Feb 22, 2020 09:52
[2020-02-22 12:00] VITALS: BP 155/77
[2020-02-22] MEDS: Enoxaparin 100mg Inj SUBQ SCH (12:42)
[2020-02-22 16:00] VITALS: BP 121/53
[2020-02-22] MEDS: Maintenance Dose:Remdesivir 100mg/NS 230ml x 4 Doses IV SCH ×2 (16:26)
[2020-02-22 20:00] VITALS: BP 125/70
[2020-02-22] MEDS: cefTRIAXone 1 GM in D5W 50 ML IVPB SCH (23:57)
[2020-02-23] VITALS: BP 120/73
[2020-02-23] MEDS: Enoxaparin 100mg Inj SUBQ SCH ×3 (00:01→23:43)
--- NOTE | 2020-02-23 01:28 | Cardiology Progress Note ---
Subjective DATE OF SERVICE: Feb 22, 2020 Remains on high flow oxygen. Remains on full anticoagulation, as well as anti-viral rx. 2D Echo pending Objective Last 24 Hour Vital Signs Date Time Temp Pulse Resp B/P (MAP) Pulse Ox O2 Delivery O2 Flow Rate FiO2 02/22/20 21:46 141/71 02/22/20 20:00 92 02/22/20 16:00 81 02/22/20 16:00 98.0 80 22 121/53 (75) 95 02/22/20 15:44 115/65 02/22/20 12:00 98.2 101 20 155/77 (103) 95 02/22/20 12:00 99 02/22/20 09:23 108 157/82 02/22/20 08:00 97.9 108 20 157/82 (107) 94 02/22/20 08:00 Nasal Cannula 2.0 02/22/20 08:00 109 02/22/20 05:46 157/77 02/22/20 04:00 91 02/22/20 04:00 98.2 98 20 147/75 (99) 95 HEENT: normal ENT inspection RHYTHM: ST LUNGS: bilateral rhonchi CARDIAC: regular rhythm, normal S1 and S2, no gallop, tachycardia ABDOMEN: normal bowel sounds, non tender, soft, no organomegaly EXTREMITIES: non-tender, No edema Laboratory Tests Test 02/22/20 05:52 02/22/20 06:15 02/22/20 09:25 02/22/20 12:40 POC Whole Blood Glucose 199 MG/DL (74-106) H 315 MG/DL (74-106) H White Blood Count 3.7 K/UL (4.8-10.8) L Red Blood Count 3.12 M/UL (4.20-5.40) L Hemoglobin 11.4 G/DL (12.0-16.0) L Hematocrit 35.7 % (37.0-47.0) L Mean Corpuscular Volume 114 FL (80-99) H Mean Corpuscular Hemoglobin 36.6 PG (27.0-31.0) H Mean Corpuscular Hemoglobin Concent 32.0 G/DL (32.0-36.0) Red Cell Distribution Width 18.0 % (11.6-14.8) H Platelet Count 325 K/UL (150-450) Mean Platelet Volume 7.3 FL (6.5-10.1) Neutrophils (%) (Auto) % (45.0-75.0) Lymphocytes (%) (Auto) % (20.0-45.0) Monocytes (%) (Auto) % (1.0-10.0) Eosinophils (%) (Auto) % (0.0-3.0) Basophils (%) (Auto) % (0.0-2.0) Differential Total Cells Counted 100 Neutrophils % (Manual) 75 % (45-75) Lymphocytes % (Manual) 16 % (20-45) L Monocytes % (Manual) 6 % (1-10) Eosinophils % (Manual) 1 % (0-3) Basophils % (Manual) 1 % (0-2) Band Neutrophils 1 % (0-8) Nucleated Red Blood Cells 2 /100 WBC Platelet Estimate Adequate Platelet Morphology Normal Hypochromasia 1+ Anisocytosis 2+ Macrocytosis 2+ Sodium Level 133 MMOL/L (136-145) L Potassium Level 3.5 MMOL/L (3.5-5.1) Chloride Level 97 MMOL/L (98-107) L Carbon Dioxide Level 21 MMOL/L (21-32) Anion Gap 15 mmol/L (5-15) Blood Urea Nitrogen 18 mg/dL (7-18) Creatinine 0.9 MG/DL (0.55-1.30) Estimat Glomerular Filtration Rate > 60 mL/min (>60) Glucose Level 213 MG/DL (74-106) H Calcium Level 8.2 MG/DL (8.5-10.1) L Magnesium Level 1.5 MG/DL (1.8-2.4) L Total Bilirubin 0.8 MG/DL (0.2-1.0) Direct Bilirubin 0.1 MG/DL (0.0-0.3) Aspartate Amino Transf (AST/SGOT) 47 U/L (15-37) H Alanine Aminotransferase (ALT/SGPT) 28 U/L (12-78) Alkaline Phosphatase 79 U/L (46-116) Pro-B-Type Natriuretic Peptide 1616 pg/mL (0-125) H Total Protein 7.0 G/DL (6.4-8.2) Albumin 2.8 G/DL (3.4-5.0) L Globulin 4.2 g/dL Albumin/Globulin Ratio 0.7 (1.0-2.7) L Vitamin B12 Level 471 PG/ML (193-986) Folate 10.4 NG/ML (8.6-58.9) Troponin I 0.178 ng/mL (0.000-0.056) Test 02/22/20 16:22 02/22/20 16:24 02/22/20 23:50 POC Whole Blood Glucose 396 MG/DL (74-106) H Pending Pending Assessment/Plan Assessment/Plan COVID 19 Pneumonia ARDS Hypoxia Sinus tachycardia Acute myocardial ischemia/possible NSTE myocardial infarction Hypertension/HHD with labile BP Orthostatic syncope PLAN: Full anticoagulation Maintain adequate hydration Titrate beta diogenes Antiviral therapy and steroids per PCP Await 2D Echo Bhanu Genao MD Feb 23, 2020 01:28
[2020-02-23 04:00] VITALS: BP 125/66
[2020-02-23] MEDS: HydrALAZINE 50mg tab ORAL SCH ×3 (06:37→21:54)
[2020-02-23] MEDS: NovoLOG Insulin Flexpen SUBQ SCH ×4 (06:43→21:00)
[2020-02-23 07:34] LABS: HEMATOCRIT 34.8 % (37.0-47.0); MEAN CORPUSCULAR VOLUME 111 FL (80-99); PLATELET COUNT 307 K/UL (150-450); RED BLOOD COUNT 3.13 M/UL (4.20-5.40); WHITE BLOOD COUNT 3.5 K/UL (4.8-10.8)
[2020-02-23 08:00] VITALS: BP 121/60
--- NOTE | 2020-02-23 08:12 | Pulmonology Progress Note ---
Subjective Interval Events: Trop elevated noted; seen by cardiology Constitutional: Reports: fever, fatigue HEENT: Repors: no symptoms Respiratory: Reports: no symptoms Cardiovascular: Reports: no symptoms Gastrointestinal/Abdominal: Denies: nausea, vomiting Allergies: Coded Allergies: No Known Allergies (Unverified , 02/19/20) Objective Last 24 Hour Vital Signs Date Time Temp Pulse Resp B/P (MAP) Pulse Ox O2 Delivery O2 Flow Rate FiO2 02/23/20 06:37 125/66 02/23/20 04:00 97.5 65 19 125/66 (85) 99 02/23/20 04:00 65 02/23/20 00:00 62 02/23/20 00:00 98.5 62 20 120/73 (89) 97 02/22/20 21:46 141/71 02/22/20 21:00 Nasal Cannula 2.0 02/22/20 20:00 93 Nasal Cannula 3.0 32 02/22/20 20:00 92 02/22/20 20:00 98.2 92 20 125/70 (88) 96 02/22/20 16:00 81 02/22/20 16:00 98.0 80 22 121/53 (75) 95 02/22/20 15:44 115/65 02/22/20 12:00 98.2 101 20 155/77 (103) 95 02/22/20 12:00 99 02/22/20 09:23 108 157/82 Intake and Output 02/22/20 02/23/20 19:00 07:00 Intake Total 200 ml Balance 200 ml Other 200 ml # Voids 1 3 General Appearance: no acute distress HEENT: normocephalic Respiratory: chest wall non-tender, lungs clear Cardiovascular: normal peripheral pulses Abdomen: normal bowel sounds Laboratory Tests 02/22/20 09:25: Troponin I 0.178H 02/22/20 12:40: POC Whole Blood Glucose 315H 02/22/20 16:22: POC Whole Blood Glucose 396H 02/22/20 16:24: POC Whole Blood Glucose [Pending] 02/22/20 23:50: POC Whole Blood Glucose [Pending] 02/23/20 06:41: POC Whole Blood Glucose 260H 02/23/20 07:04: White Blood Count 3.5L, Red Blood Count 3.13L, Hemoglobin 11.0L, Hematocrit 34.8L, Mean Corpuscular Volume 111H, Mean Corpuscular Hemoglobin 35.0H, Mean Corpuscular Hemoglobin Concent 31.5L, Red Cell Distribution Width 18.0H, Platelet Count 307, Mean Platelet Volume 8.8, Neutrophils (%) (Auto) , Lymphocytes (%) (Auto) , Monocytes (%) (Auto) , Eosinophils (%) (Auto) , Basophils (%) (Auto) , Neutrophils % (Manual) [Pending], Lymphocytes % (Manual) [Pending], Platelet Estimate [Pending], Platelet Morphology [Pending], Sodium Level [Pending], Potassium Level [Pending], Chloride Level [Pending], Carbon Dioxide Level [Pending], Blood Urea Nitrogen [Pending], Creatinine [Pending], Estimat Glomerular Filtration Rate [Pending], Glucose Level [Pending], Calcium Level [Pending], Total Bilirubin [Pending], Direct Bilirubin [Pending], Aspartate Amino Transf (AST/SGOT) [Pending], Alanine Aminotransferase (ALT/SGPT ) [Pending], Alkaline Phosphatase [Pending], Total Protein [Pending], Albumin [ Pending], Globulin [Pending] Current Medications Medications (Trade) Dose Ordered Sig/Luis Miguel Route PRN Reason Start Time Stop Time Status Last Admin Dose Admin Acetaminophen (Tylenol) 650 mg Q6H PRN ORAL Temp >100.5 02/21/20 11:45 03/22/20 11:44 02/22/20 15:40 Ceftriaxone Sodium 1 gm/ Dextrose 50 ml @ 100 mls/hr Q24H IVPB 02/20/20 23:00 02/27/20 22:59 02/22/20 23:57 Dexamethasone (Decadron) 6 mg DAILY ORAL 02/21/20 11:45 03/22/20 11:44 02/22/20 09:23 Dextrose (Dextrose 50%) 25 ml Q30M PRN IV Hypoglycemia 02/20/20 02:45 05/20/20 02:44 Dextrose (Dextrose 50%) 50 ml Q30M PRN IV Hypoglycemia 02/20/20 02:45 05/20/20 02:44 Doxycycline Monohydrate (Doxycycline Monohydrate) 100 mg EVERY 12 HOURS ORAL 02/20/20 21:00 02/27/20 20:59 02/22/20 21:23 Enoxaparin Sodium (Lovenox) 90 mg Q12H SUBQ 02/20/20 12:00 05/20/20 11:59 02/23/20 00:01 Hydralazine HCl (Apresoline) 50 mg Q8HR ORAL 02/20/20 06:00 05/20/20 05:59 02/23/20 06:37 Hydroxyurea (Hydrea) 500 mg DAILY ORAL 02/20/20 11:45 02/25/20 11:44 02/22/20 09:23 Insulin Aspart (NovoLOG) BEFORE MEALS AND HS SUBQ 02/20/20 06:30 05/20/20 06:29 02/23/20 06:43 Levothyroxine Sodium (Synthroid) 75 mcg 0630 ORAL 02/21/20 09:00 03/22/20 08:59 02/23/20 06:39 Metformin HCl (Glucophage) 850 mg DAILY ORAL 02/20/20 09:00 03/21/20 08:59 02/22/20 09:23 Metoprolol Succinate (Toprol XL) 75 mg DAILY ORAL 02/22/20 09:00 05/22/20 08:59 02/22/20 09:23 Pantoprazole (Protonix) 40 mg DAILY ORAL 02/20/20 09:00 03/21/20 08:59 02/22/20 09:23 Remdesivir 100 mg/ Sodium Chloride 250 ml @ 250 mls/hr Q24H IV 02/22/20 16:00 02/25/20 16:59 02/22/20 16:26 Assessment/Plan Assessment/Plan IMPRESSION: 1. COVID-19 pneumonia. 2. Elevated D-dimer. 3. Diabetes mellitus. 4. Hypertension. 5. Left elbow fracture. 6. Troponin leak. DISCUSSION: Continue full-dose Lovenox given high D-dimer and COVID-19 pneumonia. Seen by ID regarding use of Decadron and remdesivir. Continue current medications and care. I will follow carefully. Seen by cardiology. Flaquito TirMeaghan marcum Omar Syed MD Feb 23, 2020 08:12
[2020-02-23 08:40] LABS: ALANINE AMINOTRANSFERASE 32 U/L (12-78); ALBUMIN 2.7 G/DL (3.4-5.0); ALBUMIN/GLOBULIN RATIO 0.7 (1.0-2.7); ALKALINE PHOSPHATASE 69 U/L (46-116); ANION GAP 9 mmol/L (5-15); ASPARTATE AMINO TRANSFERASE 37 U/L (15-37); BILIRUBIN,DIRECT 0.3 MG/DL (0.0-0.3); BILIRUBIN,TOTAL 0.8 MG/DL (0.2-1.0); BLOOD UREA NITROGEN 21 mg/dL (7-18); CALCIUM 8.5 MG/DL (8.5-10.1); CARBON DIOXIDE 29 MMOL/L (21-32); CHLORIDE 100 MMOL/L (98-107); CREATININE 0.8 MG/DL (0.55-1.30); POTASSIUM 3.1 MMOL/L (3.5-5.1); SODIUM 138 MMOL/L (136-145)
[2020-02-23] MEDS: Metoprolol Succinate XL 25mg tab ORAL SCH (09:53)
[2020-02-23] MEDS: Hydroxyurea 500mg cap ORAL SCH (09:53)
[2020-02-23] MEDS: Doxycycline Monohydrate 100mg ORAL SCH ×2 (09:54→21:00)
[2020-02-23 12:00] VITALS: BP 138/70
[2020-02-23 16:00] VITALS: BP 130/65
[2020-02-23] MEDS: Maintenance Dose:Remdesivir 100mg/NS 230ml x 4 Doses IV SCH ×2 (16:37)
[2020-02-23 20:00] VITALS: BP 138/69
--- NOTE | 2020-02-23 20:53 | Infectious Diseases Prog Note ---
Assessment/Plan Assessment/Plan ASSESSMENT AND PLAN: 1. covid-19 infection with pna, ? CAP, hypoxia, fevers, leukopenia - ceftriaxone and doxycycline - day # 4/7 - dexamethasone - remdesivir - day # 2/ - clinically better - monitor labs and chest x-ray 2. Diabetes. 3. Hypertension. 4. Hypothyroidism. 5. Thyroid supplementation. 6. COVID isolation. 7. No known drug allergies. 8. Social history is negative. 9. Family history is noncontributory. 10. MAR was noted. 11. Case discussed with RN. 12. Blood sugar and blood pressure control for diabetes and hypertension per primary care team, Dr. Bradley. Subjective Constitutional: Denies: fever HEENT: Reports: congestion - less Respiratory: Reports: shortness of breath - less Cardiovascular: Denies: chest pain Gastrointestinal/Abdominal: Denies: nausea, vomiting, diarrhea Genitourinary: Reports: other - no fuller Neurologic: Denies: headache Psychiatric: Denies: depression Skin: Denies: rash Hematologic: Denies: bleeding Musculoskeletal: Denies: pain Allergies: Coded Allergies: No Known Allergies (Unverified , 02/19/20) Objective Last 24 Hour Vital Signs Date Time Temp Pulse Resp B/P (MAP) Pulse Ox O2 Delivery O2 Flow Rate FiO2 02/23/20 16:00 97.9 78 20 130/65 (86) 97 02/23/20 16:00 78 02/23/20 13:32 138/70 02/23/20 12:00 98.0 82 18 138/70 (92) 97 02/23/20 12:00 84 02/23/20 09:53 91 121/60 02/23/20 09:27 Nasal Cannula 2.0 02/23/20 08:00 97.9 91 20 121/60 (80) 98 02/23/20 07:29 90 02/23/20 06:37 125/66 02/23/20 04:00 97.5 65 19 125/66 (85) 99 02/23/20 04:00 65 02/23/20 00:00 62 02/23/20 00:00 98.5 62 20 120/73 (89) 97 02/22/20 21:46 141/71 02/22/20 21:00 Nasal Cannula 2.0 Height (Feet): 5 Height (Inches): 3.00 Weight (Pounds): 190 General Appearance: no acute distress HEENT: normocephalic, atraumatic, anicteric, mucous membranes moist Respiratory/Chest: crackles/rales, rhonchi - bilaterally Cardiovascular: normal rate, regular rhythm, no gallop/murmur, no JVD Abdomen: normal bowel sounds, soft, non tender, no organomegaly, non distended Genitourinary: other - no fuller Extremities: no cyanosis Skin: no rash Neurologic/Psychiatric: cork slabs sawyer II-XII grossly normal, alert, oriented x 3, responsive Lymphatic: no neck adenopathy Musculoskeletal: no effusion Chest x-ray - 02/21/20 - IMPRESSION: Prominent lung markings may be secondary to low lung volumes and crowding of bronchovascular structures. Infectious/ inflammatory process is not excluded. Microbiology Date/Time Source Procedure Growth Status 02/19/20 23:10 Blood Blood Culture - Preliminary NO GROWTH AFTER 72 HOURS Resulted 02/19/20 22:20 Nasopharynx SARS-CoV-2 RdRp Gene Assay - Final Complete 02/19/20 22:55 Urine,Clean Catch Urine Culture - Final NO GROWTH AFTER 48 HOURS Complete Laboratory Tests Test 02/22/20 23:50 02/23/20 06:41 02/23/20 07:04 02/23/20 13:18 POC Whole Blood Glucose Pending 260 MG/DL (74-106) H Pending White Blood Count 3.5 K/UL (4.8-10.8) L Red Blood Count 3.13 M/UL (4.20-5.40) L Hemoglobin 11.0 G/DL (12.0-16.0) L Hematocrit 34.8 % (37.0-47.0) L Mean Corpuscular Volume 111 FL (80-99) H Mean Corpuscular Hemoglobin 35.0 PG (27.0-31.0) H Mean Corpuscular Hemoglobin Concent 31.5 G/DL (32.0-36.0) L Red Cell Distribution Width 18.0 % (11.6-14.8) H Platelet Count 307 K/UL (150-450) Mean Platelet Volume 8.8 FL (6.5-10.1) Neutrophils (%) (Auto) % (45.0-75.0) Lymphocytes (%) (Auto) % (20.0-45.0) Monocytes (%) (Auto) % (1.0-10.0) Eosinophils (%) (Auto) % (0.0-3.0) Basophils (%) (Auto) % (0.0-2.0) Differential Total Cells Counted 100 Neutrophils % (Manual) 70 % (45-75) Lymphocytes % (Manual) 18 % (20-45) L Monocytes % (Manual) 10 % (1-10) Eosinophils % (Manual) 0 % (0-3) Basophils % (Manual) 0 % (0-2) Band Neutrophils 2 % (0-8) Platelet Estimate Adequate Platelet Morphology Normal Anisocytosis 1+ Macrocytosis 1+ Sodium Level 138 MMOL/L (136-145) Potassium Level 3.1 MMOL/L (3.5-5.1) L Chloride Level 100 MMOL/L (98-107) Carbon Dioxide Level 29 MMOL/L (21-32) Anion Gap 9 mmol/L (5-15) Blood Urea Nitrogen 21 mg/dL (7-18) H Creatinine 0.8 MG/DL (0.55-1.30) Estimat Glomerular Filtration Rate > 60 mL/min (>60) Glucose Level 259 MG/DL (74-106) H Calcium Level 8.5 MG/DL (8.5-10.1) Total Bilirubin 0.8 MG/DL (0.2-1.0) Direct Bilirubin 0.3 MG/DL (0.0-0.3) Aspartate Amino Transf (AST/SGOT) 37 U/L (15-37) Alanine Aminotransferase (ALT/SGPT) 32 U/L (12-78) Alkaline Phosphatase 69 U/L (46-116) Total Protein 6.6 G/DL (6.4-8.2) Albumin 2.7 G/DL (3.4-5.0) L Globulin 3.9 g/dL Albumin/Globulin Ratio 0.7 (1.0-2.7) L Test 02/23/20 16:40 POC Whole Blood Glucose Pending Current Medications Medications (Trade) Dose Ordered Sig/Luis Miguel Route PRN Reason Start Time Stop Time Status Last Admin Dose Admin Acetaminophen (Tylenol) 650 mg Q6H PRN ORAL Temp >100.5 02/21/20 11:45 03/22/20 11:44 02/22/20 15:40 Ceftriaxone Sodium 1 gm/ Dextrose 50 ml @ 100 mls/hr Q24H IVPB 02/20/20 23:00 02/27/20 22:59 02/22/20 23:57 Dexamethasone (Decadron) 6 mg DAILY ORAL 02/21/20 11:45 03/22/20 11:44 02/23/20 09:53 Dextrose (Dextrose 50%) 25 ml Q30M PRN IV Hypoglycemia 02/20/20 02:45 05/20/20 02:44 Dextrose (Dextrose 50%) 50 ml Q30M PRN IV Hypoglycemia 02/20/20 02:45 05/20/20 02:44 Doxycycline Monohydrate (Doxycycline Monohydrate) 100 mg EVERY 12 HOURS ORAL 02/20/20 21:00 02/27/20 20:59 02/23/20 09:54 Enoxaparin Sodium (Lovenox) 90 mg Q12H SUBQ 02/20/20 12:00 05/20/20 11:59 02/23/20 13:51 Hydralazine HCl (Apresoline) 50 mg Q8HR ORAL 02/20/20 06:00 05/20/20 05:59 02/23/20 13:32 Hydroxyurea (Hydrea) 500 mg DAILY ORAL 02/20/20 11:45 02/25/20 11:44 02/23/20 09:53 Insulin Aspart (NovoLOG) BEFORE MEALS AND HS SUBQ 02/20/20 06:30 05/20/20 06:29 02/23/20 17:58 Levothyroxine Sodium (Synthroid) 75 mcg 0630 ORAL 02/21/20 09:00 03/22/20 08:59 02/23/20 06:39 Metformin HCl (Glucophage) 850 mg DAILY ORAL 02/20/20 09:00 03/21/20 08:59 02/23/20 09:55 Metoprolol Succinate (Toprol XL) 75 mg DAILY ORAL 02/22/20 09:00 05/22/20 08:59 02/23/20 09:53 Pantoprazole (Protonix) 40 mg DAILY ORAL 02/20/20 09:00 03/21/20 08:59 02/23/20 09:54 Potassium Chloride (K-Dur) 40 meq ONCE ORAL 02/23/20 19:00 02/23/20 21:00 Remdesivir 100 mg/ Sodium Chloride 250 ml @ 250 mls/hr Q24H IV 02/22/20 16:00 02/25/20 16:59 02/23/20 16:37 Edwina Gan MD Feb 23, 2020 20:53
[2020-02-23] MEDS: cefTRIAXone 1 GM in D5W 50 ML IVPB SCH (22:41)
[2020-02-24] VITALS: BP 135/75
--- NOTE | 2020-02-24 00:38 | Cardiology Progress Note ---
Subjective DATE OF SERVICE: Feb 23, 2020 Remains on high flow oxygen. Remains on full anticoagulation, as well as anti-viral rx. 2D Echo revealed normal LVEF, no valvular disease, and normal pulmonary artery systolic pressures. Objective Last 24 Hour Vital Signs Date Time Temp Pulse Resp B/P (MAP) Pulse Ox O2 Delivery O2 Flow Rate FiO2 02/24/20 00:00 97.5 86 19 135/75 (95) 98 02/24/20 00:00 75 02/23/20 21:54 138/69 02/23/20 21:00 Nasal Cannula 2.0 02/23/20 20:00 97.5 85 19 138/69 (92) 95 02/23/20 20:00 81 02/23/20 20:00 94 Nasal Cannula 3.0 32 02/23/20 16:00 97.9 78 20 130/65 (86) 97 02/23/20 16:00 78 02/23/20 13:32 138/70 02/23/20 12:00 98.0 82 18 138/70 (92) 97 02/23/20 12:00 84 02/23/20 09:53 91 121/60 02/23/20 09:27 Nasal Cannula 2.0 02/23/20 08:00 97.9 91 20 121/60 (80) 98 02/23/20 07:29 90 02/23/20 06:37 125/66 02/23/20 04:00 97.5 65 19 125/66 (85) 99 02/23/20 04:00 65 HEENT: normal ENT inspection RHYTHM: ST LUNGS: bilateral rhonchi CARDIAC: regular rhythm, normal S1 and S2, no gallop, tachycardia ABDOMEN: normal bowel sounds, non tender, soft, no organomegaly EXTREMITIES: non-tender, No edema Laboratory Tests Test 02/23/20 06:41 02/23/20 07:04 02/23/20 13:18 02/23/20 16:40 POC Whole Blood Glucose 260 MG/DL (74-106) H Pending Pending White Blood Count 3.5 K/UL (4.8-10.8) L Red Blood Count 3.13 M/UL (4.20-5.40) L Hemoglobin 11.0 G/DL (12.0-16.0) L Hematocrit 34.8 % (37.0-47.0) L Mean Corpuscular Volume 111 FL (80-99) H Mean Corpuscular Hemoglobin 35.0 PG (27.0-31.0) H Mean Corpuscular Hemoglobin Concent 31.5 G/DL (32.0-36.0) L Red Cell Distribution Width 18.0 % (11.6-14.8) H Platelet Count 307 K/UL (150-450) Mean Platelet Volume 8.8 FL (6.5-10.1) Neutrophils (%) (Auto) % (45.0-75.0) Lymphocytes (%) (Auto) % (20.0-45.0) Monocytes (%) (Auto) % (1.0-10.0) Eosinophils (%) (Auto) % (0.0-3.0) Basophils (%) (Auto) % (0.0-2.0) Differential Total Cells Counted 100 Neutrophils % (Manual) 70 % (45-75) Lymphocytes % (Manual) 18 % (20-45) L Monocytes % (Manual) 10 % (1-10) Eosinophils % (Manual) 0 % (0-3) Basophils % (Manual) 0 % (0-2) Band Neutrophils 2 % (0-8) Platelet Estimate Adequate Platelet Morphology Normal Anisocytosis 1+ Macrocytosis 1+ Sodium Level 138 MMOL/L (136-145) Potassium Level 3.1 MMOL/L (3.5-5.1) L Chloride Level 100 MMOL/L (98-107) Carbon Dioxide Level 29 MMOL/L (21-32) Anion Gap 9 mmol/L (5-15) Blood Urea Nitrogen 21 mg/dL (7-18) H Creatinine 0.8 MG/DL (0.55-1.30) Estimat Glomerular Filtration Rate > 60 mL/min (>60) Glucose Level 259 MG/DL (74-106) H Calcium Level 8.5 MG/DL (8.5-10.1) Total Bilirubin 0.8 MG/DL (0.2-1.0) Direct Bilirubin 0.3 MG/DL (0.0-0.3) Aspartate Amino Transf (AST/SGOT) 37 U/L (15-37) Alanine Aminotransferase (ALT/SGPT) 32 U/L (12-78) Alkaline Phosphatase 69 U/L (46-116) Total Protein 6.6 G/DL (6.4-8.2) Albumin 2.7 G/DL (3.4-5.0) L Globulin 3.9 g/dL Albumin/Globulin Ratio 0.7 (1.0-2.7) L Assessment/Plan Assessment/Plan COVID 19 Pneumonia ARDS Hypoxia Sinus tachycardia Acute myocardial ischemia/possible NSTE myocardial infarction Hypertension/HHD with labile BP Orthostatic syncope PLAN: Full anticoagulation Maintain adequate hydration Titrate beta diogenes Antiviral therapy and steroids per PCP Maintenance hydration. Bhanu Genao MD Feb 24, 2020 00:38
[2020-02-24 04:00] VITALS: BP 150/68
[2020-02-24] MEDS: HydrALAZINE 50mg tab ORAL SCH ×3 (06:01→22:00)
[2020-02-24] MEDS: NovoLOG Insulin Flexpen SUBQ SCH ×4 (06:21→21:00)
[2020-02-24 07:26] LABS: HEMATOCRIT 36.9 % (37.0-47.0); HEMOGLOBIN 11.6 G/DL (12.0-16.0); MEAN CORPUSCULAR VOLUME 112 FL (80-99); PLATELET COUNT 346 K/UL (150-450); RED BLOOD COUNT 3.29 M/UL (4.20-5.40); RED CELL DISTRIBUTION WIDTH 18.6 % (11.6-14.8); WHITE BLOOD COUNT 5.2 K/UL (4.8-10.8)
[2020-02-24 07:28] LABS: ALANINE AMINOTRANSFERASE 30 U/L (12-78); ALBUMIN 3.1 G/DL (3.4-5.0); ALBUMIN/GLOBULIN RATIO 0.8 (1.0-2.7); ALKALINE PHOSPHATASE 82 U/L (46-116); ANION GAP 8 mmol/L (5-15); ASPARTATE AMINO TRANSFERASE 33 U/L (15-37); BILIRUBIN,DIRECT 0.2 MG/DL (0.0-0.3); BILIRUBIN,TOTAL 0.8 MG/DL (0.2-1.0); BLOOD UREA NITROGEN 25 mg/dL (7-18); CALCIUM 8.7 MG/DL (8.5-10.1); CARBON DIOXIDE 30 MMOL/L (21-32); CHLORIDE 100 MMOL/L (98-107); POTASSIUM 3.4 MMOL/L (3.5-5.1); SODIUM 137 MMOL/L (136-145)
[2020-02-24 08:00] VITALS: BP 160/84
[2020-02-24] MEDS: Doxycycline Monohydrate 100mg ORAL SCH ×2 (09:37→21:00)
[2020-02-24] MEDS: Hydroxyurea 500mg cap ORAL SCH (09:37)
[2020-02-24] MEDS: Metoprolol Succinate XL 25mg tab ORAL SCH (09:38)
--- NOTE | 2020-02-24 10:58 | Pulmonology Progress Note ---
Subjective Interval Events: Trop elevated noted; seen by cardiology Constitutional: Denies: fever HEENT: Repors: no symptoms Respiratory: Reports: no symptoms Cardiovascular: Reports: no symptoms Gastrointestinal/Abdominal: Denies: nausea, vomiting, diarrhea Psychiatric: Denies: depression Skin: Denies: rash Musculoskeletal: Denies: pain Allergies: Coded Allergies: No Known Allergies (Unverified , 02/19/20) Objective Last 24 Hour Vital Signs Date Time Temp Pulse Resp B/P (MAP) Pulse Ox O2 Delivery O2 Flow Rate FiO2 02/24/20 09:38 92 160/84 02/24/20 09:00 Nasal Cannula 2.0 02/24/20 08:00 92 02/24/20 08:00 97.7 92 20 160/84 (109) 97 02/24/20 06:01 150/68 02/24/20 04:00 76 02/24/20 04:00 97.9 100 19 150/68 (95) 95 02/24/20 00:00 97.5 86 19 135/75 (95) 98 02/24/20 00:00 75 02/23/20 21:54 138/69 02/23/20 21:00 Nasal Cannula 2.0 02/23/20 20:00 97.5 85 19 138/69 (92) 95 02/23/20 20:00 81 02/23/20 20:00 94 Nasal Cannula 3.0 32 02/23/20 16:00 97.9 78 20 130/65 (86) 97 02/23/20 16:00 78 02/23/20 13:32 138/70 02/23/20 12:00 98.0 82 18 138/70 (92) 97 02/23/20 12:00 84 Intake and Output 02/23/20 02/24/20 19:00 07:00 Intake Total 360 ml Balance 360 ml Intake Oral 360 ml # Voids 3 3 General Appearance: no acute distress HEENT: normocephalic Respiratory: chest wall non-tender, lungs clear Cardiovascular: normal peripheral pulses Abdomen: normal bowel sounds Laboratory Tests 02/23/20 13:18: POC Whole Blood Glucose [Pending] 02/23/20 16:40: POC Whole Blood Glucose [Pending] 02/24/20 06:40: White Blood Count 5.2, Red Blood Count 3.29L, Hemoglobin 11.6L, Hematocrit 36.9L , Mean Corpuscular Volume 112H, Mean Corpuscular Hemoglobin 35.1H, Mean Corpuscular Hemoglobin Concent 31.3L, Red Cell Distribution Width 18.6H, Platelet Count 346, Mean Platelet Volume 8.8, Neutrophils (%) (Auto) , Lymphocytes (%) (Auto) , Monocytes (%) (Auto) , Eosinophils (%) (Auto) , Basophils (%) (Auto) , Differential Total Cells Counted 100, Neutrophils % ( Manual) 81H, Lymphocytes % (Manual) 10L, Monocytes % (Manual) 9, Eosinophils % ( Manual) 0, Basophils % (Manual) 0, Band Neutrophils 0, Nucleated Red Blood Cells 1, Platelet Estimate Adequate, Platelet Morphology Normal, Red Blood Cell Morphology Normal, Sodium Level 137, Potassium Level 3.4L, Chloride Level 100, Carbon Dioxide Level 30, Anion Gap 8, Blood Urea Nitrogen 25H, Creatinine 1.0, Estimat Glomerular Filtration Rate 54.5, Glucose Level 251H, Calcium Level 8.7, Total Bilirubin 0.8, Direct Bilirubin 0.2, Aspartate Amino Transf (AST/SGOT) 33 , Alanine Aminotransferase (ALT/SGPT) 30, Alkaline Phosphatase 82, Total Protein 7.1, Albumin 3.1L, Globulin 4.0, Albumin/Globulin Ratio 0.8L Current Medications Medications (Trade) Dose Ordered Sig/Luis Miguel Route PRN Reason Start Time Stop Time Status Last Admin Dose Admin Acetaminophen (Tylenol) 650 mg Q6H PRN ORAL Temp >100.5 02/21/20 11:45 03/22/20 11:44 02/22/20 15:40 Ceftriaxone Sodium 1 gm/ Dextrose 50 ml @ 100 mls/hr Q24H IVPB 02/20/20 23:00 02/27/20 22:59 02/23/20 22:41 Dexamethasone (Decadron) 6 mg DAILY ORAL 02/21/20 11:45 03/22/20 11:44 02/24/20 09:38 Dextrose (Dextrose 50%) 25 ml Q30M PRN IV Hypoglycemia 02/20/20 02:45 05/20/20 02:44 Dextrose (Dextrose 50%) 50 ml Q30M PRN IV Hypoglycemia 02/20/20 02:45 05/20/20 02:44 Doxycycline Monohydrate (Doxycycline Monohydrate) 100 mg EVERY 12 HOURS ORAL 02/20/20 21:00 02/27/20 20:59 02/24/20 09:37 Enoxaparin Sodium (Lovenox) 90 mg Q12H SUBQ 02/20/20 12:00 05/20/20 11:59 02/23/20 23:43 Hydralazine HCl (Apresoline) 50 mg Q8HR ORAL 02/20/20 06:00 05/20/20 05:59 02/24/20 06:01 Hydroxyurea (Hydrea) 500 mg DAILY ORAL 02/20/20 11:45 02/25/20 11:44 02/24/20 09:37 Insulin Aspart (NovoLOG) BEFORE MEALS AND HS SUBQ 02/20/20 06:30 05/20/20 06:29 02/24/20 06:21 Levothyroxine Sodium (Synthroid) 75 mcg 0630 ORAL 02/21/20 09:00 03/22/20 08:59 02/24/20 06:01 Metformin HCl (Glucophage) 850 mg DAILY ORAL 02/20/20 09:00 03/21/20 08:59 02/24/20 09:38 Metoprolol Succinate (Toprol XL) 75 mg DAILY ORAL 02/22/20 09:00 05/22/20 08:59 02/24/20 09:38 Pantoprazole (Protonix) 40 mg DAILY ORAL 02/20/20 09:00 03/21/20 08:59 02/24/20 09:38 Remdesivir 100 mg/ Sodium Chloride 250 ml @ 250 mls/hr Q24H IV 02/22/20 16:00 02/25/20 16:59 02/23/20 16:37 Assessment/Plan Assessment/Plan IMPRESSION: 1. COVID-19 pneumonia. 2. Elevated D-dimer. 3. Diabetes mellitus. 4. Hypertension. 5. Left elbow fracture. 6. Troponin leak. DISCUSSION: Continue full-dose Lovenox given high D-dimer and COVID-19 pneumonia. Seen by ID regarding use of Decadron and remdesivir. Continue current medications and care. I will follow carefully. she is currently saturating well on 2 L of nasal oxygen Seen by cardiology. Meaghan Medrano Omar Syed MD Feb 24, 2020 10:58
[2020-02-24 12:00] VITALS: BP 155/75
[2020-02-24] MEDS: Enoxaparin 100mg Inj SUBQ SCH ×2 (12:58→23:45)
[2020-02-24 16:00] VITALS: BP 135/89
[2020-02-24] MEDS: Maintenance Dose:Remdesivir 100mg/NS 230ml x 4 Doses IV SCH ×2 (17:12)
[2020-02-24 20:00] VITALS: BP 150/74
[2020-02-24] MEDS: cefTRIAXone 1 GM in D5W 50 ML IVPB SCH (23:00)
[2020-02-25] VITALS: BP 147/87
--- NOTE | 2020-02-25 01:47 | Cardiology Progress Note ---
Subjective DATE OF SERVICE: Feb 24, 2020 Remains on high flow oxygen. Remains on full anticoagulation, as well as anti-viral rx. 2D Echo revealed normal LVEF, no valvular disease, and normal pulmonary artery systolic pressures. Objective Last 24 Hour Vital Signs Date Time Temp Pulse Resp B/P (MAP) Pulse Ox O2 Delivery O2 Flow Rate FiO2 02/25/20 00:00 81 02/25/20 00:00 98.9 82 20 147/87 (107) 95 02/24/20 22:00 160/74 02/24/20 21:00 Nasal Cannula 2.0 02/24/20 20:20 92 Nasal Cannula 3.0 32 02/24/20 20:00 74 02/24/20 20:00 97.0 94 19 150/74 (99) 95 02/24/20 16:00 97.7 73 20 135/89 (104) 97 02/24/20 16:00 82 02/24/20 13:37 155/75 02/24/20 12:02 121 02/24/20 12:00 96 02/24/20 12:00 97.5 86 18 155/75 (101) 96 02/24/20 09:38 92 160/84 02/24/20 09:00 Nasal Cannula 2.0 02/24/20 08:00 92 02/24/20 08:00 97.7 92 20 160/84 (109) 97 02/24/20 06:01 150/68 02/24/20 04:00 76 02/24/20 04:00 97.9 100 19 150/68 (95) 95 HEENT: normal ENT inspection RHYTHM: ST LUNGS: bilateral rhonchi CARDIAC: regular rhythm, normal S1 and S2, no gallop, tachycardia ABDOMEN: normal bowel sounds, non tender, soft, no organomegaly EXTREMITIES: non-tender, No edema Laboratory Tests Test 02/24/20 06:40 02/24/20 16:30 White Blood Count 5.2 K/UL (4.8-10.8) Red Blood Count 3.29 M/UL (4.20-5.40) L Hemoglobin 11.6 G/DL (12.0-16.0) L Hematocrit 36.9 % (37.0-47.0) L Mean Corpuscular Volume 112 FL (80-99) H Mean Corpuscular Hemoglobin 35.1 PG (27.0-31.0) H Mean Corpuscular Hemoglobin Concent 31.3 G/DL (32.0-36.0) L Red Cell Distribution Width 18.6 % (11.6-14.8) H Platelet Count 346 K/UL (150-450) Mean Platelet Volume 8.8 FL (6.5-10.1) Neutrophils (%) (Auto) % (45.0-75.0) Lymphocytes (%) (Auto) % (20.0-45.0) Monocytes (%) (Auto) % (1.0-10.0) Eosinophils (%) (Auto) % (0.0-3.0) Basophils (%) (Auto) % (0.0-2.0) Differential Total Cells Counted 100 Neutrophils % (Manual) 81 % (45-75) H Lymphocytes % (Manual) 10 % (20-45) L Monocytes % (Manual) 9 % (1-10) Eosinophils % (Manual) 0 % (0-3) Basophils % (Manual) 0 % (0-2) Band Neutrophils 0 % (0-8) Nucleated Red Blood Cells 1 /100 WBC Platelet Estimate Adequate Platelet Morphology Normal Red Blood Cell Morphology Normal Sodium Level 137 MMOL/L (136-145) Potassium Level 3.4 MMOL/L (3.5-5.1) L Chloride Level 100 MMOL/L (98-107) Carbon Dioxide Level 30 MMOL/L (21-32) Anion Gap 8 mmol/L (5-15) Blood Urea Nitrogen 25 mg/dL (7-18) H Creatinine 1.0 MG/DL (0.55-1.30) Estimat Glomerular Filtration Rate 54.5 mL/min (>60) Glucose Level 251 MG/DL (74-106) H Calcium Level 8.7 MG/DL (8.5-10.1) Total Bilirubin 0.8 MG/DL (0.2-1.0) Direct Bilirubin 0.2 MG/DL (0.0-0.3) Aspartate Amino Transf (AST/SGOT) 33 U/L (15-37) Alanine Aminotransferase (ALT/SGPT) 30 U/L (12-78) Alkaline Phosphatase 82 U/L (46-116) Total Protein 7.1 G/DL (6.4-8.2) Albumin 3.1 G/DL (3.4-5.0) L Globulin 4.0 g/dL Albumin/Globulin Ratio 0.8 (1.0-2.7) L POC Whole Blood Glucose Pending Assessment/Plan Assessment/Plan COVID 19 Pneumonia Non sustained ventricular tachycardia ARDS Hypoxia Sinus tachycardia Acute myocardial ischemia/possible NSTE myocardial infarction Hypertension/HHD with labile BP Orthostatic syncope PLAN: Full anticoagulation Maintain adequate hydration Titrating beta diogenes Antiviral therapy and steroids per PCP Maintenance hydration. Bhanu Genao MD Feb 25, 2020 01:47
[2020-02-25 04:00] VITALS: BP 135/66
[2020-02-25] MEDS: HydrALAZINE 50mg tab ORAL SCH ×3 (06:07→22:08)
[2020-02-25] MEDS: NovoLOG Insulin Flexpen SUBQ SCH ×4 (06:19→20:51)
[2020-02-25 08:00] VITALS: BP 148/71
[2020-02-25] MEDS: Hydroxyurea 500mg cap ORAL SCH (08:03)
[2020-02-25] MEDS: Doxycycline Monohydrate 100mg ORAL SCH ×2 (08:05→20:44)
[2020-02-25] MEDS: Metoprolol Succinate XL 100mg tab ORAL SCH (08:31)
[2020-02-25 09:04] LABS: HEMATOCRIT 34.9 % (37.0-47.0); HEMOGLOBIN 10.8 G/DL (12.0-16.0); MEAN CORPUSCULAR VOLUME 112 FL (80-99); PLATELET COUNT 329 K/UL (150-450); RED BLOOD COUNT 3.13 M/UL (4.20-5.40); RED CELL DISTRIBUTION WIDTH 18.5 % (11.6-14.8); WHITE BLOOD COUNT 6.5 K/UL (4.8-10.8)
[2020-02-25 09:23] LABS: ALANINE AMINOTRANSFERASE 24 U/L (12-78); ALBUMIN 2.7 G/DL (3.4-5.0); ALBUMIN/GLOBULIN RATIO 0.7 (1.0-2.7); ALKALINE PHOSPHATASE 82 U/L (46-116); ANION GAP 6 mmol/L (5-15); ASPARTATE AMINO TRANSFERASE 26 U/L (15-37); BILIRUBIN,DIRECT 0.2 MG/DL (0.0-0.3); BILIRUBIN,TOTAL 0.8 MG/DL (0.2-1.0); BLOOD UREA NITROGEN 27 mg/dL (7-18); CALCIUM 8.6 MG/DL (8.5-10.1); CARBON DIOXIDE 28 MMOL/L (21-32); CHLORIDE 101 MMOL/L (98-107); CREATININE 0.9 MG/DL (0.55-1.30); POTASSIUM 3.8 MMOL/L (3.5-5.1); SODIUM 135 MMOL/L (136-145)
[2020-02-25] MEDS: Enoxaparin 100mg Inj SUBQ SCH (11:36)
[2020-02-25 12:00] VITALS: BP 141/72
--- NOTE | 2020-02-25 14:41 | Pulmonology Progress Note ---
Subjective Interval Events: None new Constitutional: Denies: fever HEENT: Repors: no symptoms Respiratory: Reports: no symptoms Cardiovascular: Reports: no symptoms Gastrointestinal/Abdominal: Denies: nausea, vomiting, diarrhea Psychiatric: Denies: depression Skin: Denies: rash Musculoskeletal: Denies: pain Allergies: Coded Allergies: No Known Allergies (Unverified , 02/19/20) Objective Last 24 Hour Vital Signs Date Time Temp Pulse Resp B/P (MAP) Pulse Ox O2 Delivery O2 Flow Rate FiO2 02/25/20 14:28 141/72 02/25/20 12:00 97.5 61 20 141/72 (95) 91 02/25/20 12:00 95 02/25/20 09:00 Nasal Cannula 2.0 02/25/20 08:31 99 148/71 02/25/20 08:00 95 02/25/20 08:00 97.9 99 18 148/71 (96) 91 02/25/20 06:07 135/66 02/25/20 04:00 65 02/25/20 04:00 99.0 80 20 135/66 (89) 95 02/25/20 02:48 98.9 02/25/20 00:00 81 02/25/20 00:00 98.9 82 20 147/87 (107) 95 02/24/20 22:00 160/74 02/24/20 21:00 Nasal Cannula 2.0 02/24/20 20:20 92 Nasal Cannula 3.0 32 02/24/20 20:00 74 02/24/20 20:00 97.0 94 19 150/74 (99) 95 02/24/20 16:00 97.7 73 20 135/89 (104) 97 02/24/20 16:00 82 Intake and Output 02/24/20 02/25/20 19:00 07:00 Intake Total 610 ml Balance 610 ml Intake Oral 360 ml IV Total 250 ml # Voids 3 3 # Bowel Movements 1 General Appearance: no acute distress HEENT: normocephalic Respiratory: chest wall non-tender, lungs clear Cardiovascular: normal peripheral pulses Abdomen: normal bowel sounds Laboratory Tests 02/24/20 16:30: POC Whole Blood Glucose [Pending] 02/25/20 08:45: White Blood Count 6.5, Red Blood Count 3.13L, Hemoglobin 10.8L, Hematocrit 34.9L , Mean Corpuscular Volume 112H, Mean Corpuscular Hemoglobin 34.7H, Mean Corpuscular Hemoglobin Concent 31.0L, Red Cell Distribution Width 18.5H, Platelet Count 329, Mean Platelet Volume 8.4, Neutrophils (%) (Auto) , Lymphocytes (%) (Auto) , Monocytes (%) (Auto) , Eosinophils (%) (Auto) , Basophils (%) (Auto) , Differential Total Cells Counted 100, Neutrophils % ( Manual) 70, Lymphocytes % (Manual) 13L, Monocytes % (Manual) 17H, Eosinophils % (Manual) 0, Basophils % (Manual) 0, Band Neutrophils 0, Nucleated Red Blood Cells 3, Platelet Estimate Adequate, Platelet Morphology Normal, Hypochromasia 1 +, Anisocytosis 2+, Macrocytosis 2+, Sodium Level 135L, Potassium Level 3.8, Chloride Level 101, Carbon Dioxide Level 28, Anion Gap 6, Blood Urea Nitrogen 27H, Creatinine 0.9, Estimat Glomerular Filtration Rate > 60, Glucose Level 303H , Calcium Level 8.6, Total Bilirubin 0.8, Direct Bilirubin 0.2, Aspartate Amino Transf (AST/SGOT) 26, Alanine Aminotransferase (ALT/SGPT) 24, Alkaline Phosphatase 82, Total Protein 6.5, Albumin 2.7L, Globulin 3.8, Albumin/Globulin Ratio 0.7L 02/25/20 11:41: POC Whole Blood Glucose [Pending] Current Medications Medications (Trade) Dose Ordered Sig/Luis Miguel Route PRN Reason Start Time Stop Time Status Last Admin Dose Admin Acetaminophen (Tylenol) 650 mg Q6H PRN ORAL Temp >100.5 02/21/20 11:45 03/22/20 11:44 02/25/20 12:13 Ceftriaxone Sodium 1 gm/ Dextrose 50 ml @ 100 mls/hr Q24H IVPB 02/20/20 23:00 02/27/20 22:59 02/24/20 23:00 Dexamethasone (Decadron) 6 mg DAILY ORAL 02/21/20 11:45 03/22/20 11:44 02/25/20 08:05 Dextrose (Dextrose 50%) 25 ml Q30M PRN IV Hypoglycemia 02/24/20 16:45 05/24/20 16:44 Dextrose (Dextrose 50%) 50 ml Q30M PRN IV Hypoglycemia 02/24/20 16:45 05/24/20 16:44 Doxycycline Monohydrate (Doxycycline Monohydrate) 100 mg EVERY 12 HOURS ORAL 02/20/20 21:00 02/27/20 20:59 02/25/20 08:05 Enoxaparin Sodium (Lovenox) 90 mg Q12H SUBQ 02/20/20 12:00 05/20/20 11:59 02/25/20 11:36 Hydralazine HCl (Apresoline) 50 mg Q8HR ORAL 02/20/20 06:00 05/20/20 05:59 02/25/20 14:28 Insulin Aspart (NovoLOG) BEFORE MEALS AND HS SUBQ 02/24/20 16:30 05/24/20 16:29 02/25/20 11:48 Levothyroxine Sodium (Synthroid) 75 mcg 0630 ORAL 02/21/20 09:00 03/22/20 08:59 02/25/20 06:08 Metformin HCl (Glucophage) 850 mg DAILY ORAL 02/20/20 09:00 03/21/20 08:59 02/25/20 08:04 Metoprolol Succinate (Toprol XL) 100 mg DAILY ORAL 02/25/20 09:00 05/25/20 08:59 02/25/20 08:31 Pantoprazole (Protonix) 40 mg DAILY ORAL 02/20/20 09:00 03/21/20 08:59 02/25/20 08:03 Remdesivir 100 mg/ Sodium Chloride 250 ml @ 250 mls/hr Q24H IV 02/22/20 16:00 02/25/20 16:59 02/24/20 17:12 Assessment/Plan Assessment/Plan IMPRESSION: 1. COVID-19 pneumonia. 2. Elevated D-dimer. 3. Diabetes mellitus. 4. Hypertension. 5. Left elbow fracture. 6. Troponin leak. DISCUSSION: Continue full-dose Lovenox given high D-dimer and COVID-19 pneumonia. Seen by ID regarding use of Decadron and remdesivir. Continue current medications and care. I will follow carefully. she is currently saturating 91-92% on 2 L of nasal oxygen Seen by cardiology. Meaghan Medrano Omar Syed MD Feb 25, 2020 14:41
[2020-02-25 15:51] VITALS: BP 124/62
[2020-02-25] MEDS: Maintenance Dose:Remdesivir 100mg/NS 230ml x 4 Doses IV SCH ×2 (16:14)
--- NOTE | 2020-02-25 19:21 | Infectious Diseases Prog Note ---
Assessment/Plan Assessment/Plan ASSESSMENT AND PLAN: 1. covid-19 infection with pna, ? CAP, hypoxia, fevers, leukopenia - ceftriaxone and doxycycline - day # 6/7 - dexamethasone - remdesivir - finish course - clinically better - monitor labs and chest x-ray 2. Diabetes. 3. Hypertension. 4. Hypothyroidism. 5. Thyroid supplementation. 6. COVID isolation. 7. No known drug allergies. 8. Social history is negative. 9. Family history is noncontributory. 10. MAR was noted. 11. Case discussed with RN. 12. Blood sugar and blood pressure control for diabetes and hypertension per primary care team, Dr. Bradley. Subjective Constitutional: Denies: fever HEENT: Reports: congestion - mild, less Respiratory: Reports: shortness of breath - mild, less Cardiovascular: Denies: chest pain Gastrointestinal/Abdominal: Denies: nausea, vomiting, diarrhea Genitourinary: Reports: other - no fuller Neurologic: Denies: headache Skin: Denies: rash Hematologic: Denies: bleeding Musculoskeletal: Denies: pain Allergies: Coded Allergies: No Known Allergies (Unverified , 02/19/20) Objective Last 24 Hour Vital Signs Date Time Temp Pulse Resp B/P (MAP) Pulse Ox O2 Delivery O2 Flow Rate FiO2 02/25/20 15:51 97.0 82 18 124/62 (82) 90 02/25/20 15:36 82 02/25/20 14:28 141/72 02/25/20 12:00 97.5 61 20 141/72 (95) 91 02/25/20 12:00 95 02/25/20 09:00 Nasal Cannula 2.0 02/25/20 08:31 99 148/71 02/25/20 08:00 95 02/25/20 08:00 97.9 99 18 148/71 (96) 91 02/25/20 06:07 135/66 02/25/20 04:00 65 02/25/20 04:00 99.0 80 20 135/66 (89) 95 02/25/20 02:48 98.9 02/25/20 00:00 81 02/25/20 00:00 98.9 82 20 147/87 (107) 95 02/24/20 22:00 160/74 02/24/20 21:00 Nasal Cannula 2.0 02/24/20 20:20 92 Nasal Cannula 3.0 32 02/24/20 20:00 74 02/24/20 20:00 97.0 94 19 150/74 (99) 95 Height (Feet): 5 Height (Inches): 3.00 Weight (Pounds): 194 General Appearance: no acute distress HEENT: normocephalic, atraumatic, anicteric, mucous membranes moist Respiratory/Chest: no respiratory distress, no accessory muscle use, crackles/ rales, rhonchi - bilaterally Cardiovascular: normal rate, regular rhythm, no gallop/murmur, no JVD Abdomen: normal bowel sounds, soft, non tender, no organomegaly, non distended Genitourinary: other - no fuller Extremities: no cyanosis Skin: no rash 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 Infectious/ inflammatory process is not excluded. Microbiology Date/Time Source Procedure Growth Status 02/19/20 23:10 Blood Blood Culture - Final NO GROWTH AFTER 5 DAYS Complete 02/19/20 22:20 Nasopharynx SARS-CoV-2 RdRp Gene Assay - Final Complete 02/19/20 22:55 Urine,Clean Catch Urine Culture - Final NO GROWTH AFTER 48 HOURS Complete Laboratory Tests Test 02/25/20 08:45 02/25/20 11:41 02/25/20 16:21 White Blood Count 6.5 K/UL (4.8-10.8) Red Blood Count 3.13 M/UL (4.20-5.40) L Hemoglobin 10.8 G/DL (12.0-16.0) L Hematocrit 34.9 % (37.0-47.0) L Mean Corpuscular Volume 112 FL (80-99) H Mean Corpuscular Hemoglobin 34.7 PG (27.0-31.0) H Mean Corpuscular Hemoglobin Concent 31.0 G/DL (32.0-36.0) L Red Cell Distribution Width 18.5 % (11.6-14.8) H Platelet Count 329 K/UL (150-450) Mean Platelet Volume 8.4 FL (6.5-10.1) Neutrophils (%) (Auto) % (45.0-75.0) Lymphocytes (%) (Auto) % (20.0-45.0) Monocytes (%) (Auto) % (1.0-10.0) Eosinophils (%) (Auto) % (0.0-3.0) Basophils (%) (Auto) % (0.0-2.0) Differential Total Cells Counted 100 Neutrophils % (Manual) 70 % (45-75) Lymphocytes % (Manual) 13 % (20-45) L Monocytes % (Manual) 17 % (1-10) H Eosinophils % (Manual) 0 % (0-3) Basophils % (Manual) 0 % (0-2) Band Neutrophils 0 % (0-8) Nucleated Red Blood Cells 3 /100 WBC Platelet Estimate Adequate Platelet Morphology Normal Hypochromasia 1+ Anisocytosis 2+ Macrocytosis 2+ Sodium Level 135 MMOL/L (136-145) L Potassium Level 3.8 MMOL/L (3.5-5.1) Chloride Level 101 MMOL/L (98-107) Carbon Dioxide Level 28 MMOL/L (21-32) Anion Gap 6 mmol/L (5-15) Blood Urea Nitrogen 27 mg/dL (7-18) H Creatinine 0.9 MG/DL (0.55-1.30) Estimat Glomerular Filtration Rate > 60 mL/min (>60) Glucose Level 303 MG/DL (74-106) H Calcium Level 8.6 MG/DL (8.5-10.1) Total Bilirubin 0.8 MG/DL (0.2-1.0) Direct Bilirubin 0.2 MG/DL (0.0-0.3) Aspartate Amino Transf (AST/SGOT) 26 U/L (15-37) Alanine Aminotransferase (ALT/SGPT) 24 U/L (12-78) Alkaline Phosphatase 82 U/L (46-116) Total Protein 6.5 G/DL (6.4-8.2) Albumin 2.7 G/DL (3.4-5.0) L Globulin 3.8 g/dL Albumin/Globulin Ratio 0.7 (1.0-2.7) L POC Whole Blood Glucose Pending Pending Current Medications Medications (Trade) Dose Ordered Sig/Luis Miguel Route PRN Reason Start Time Stop Time Status Last Admin Dose Admin Acetaminophen (Tylenol) 650 mg Q6H PRN ORAL Temp >100.5 02/21/20 11:45 03/22/20 11:44 02/25/20 12:13 Ceftriaxone Sodium 1 gm/ Dextrose 50 ml @ 100 mls/hr Q24H IVPB 02/20/20 23:00 02/27/20 22:59 02/24/20 23:00 Dexamethasone (Decadron) 6 mg DAILY ORAL 02/21/20 11:45 03/22/20 11:44 02/25/20 08:05 Dextrose (Dextrose 50%) 25 ml Q30M PRN IV Hypoglycemia 02/24/20 16:45 05/24/20 16:44 Dextrose (Dextrose 50%) 50 ml Q30M PRN IV Hypoglycemia 02/24/20 16:45 05/24/20 16:44 Doxycycline Monohydrate (Doxycycline Monohydrate) 100 mg EVERY 12 HOURS ORAL 02/20/20 21:00 02/27/20 20:59 02/25/20 08:05 Enoxaparin Sodium (Lovenox) 90 mg Q12H SUBQ 02/20/20 12:00 05/20/20 11:59 02/25/20 11:36 Hydralazine HCl (Apresoline) 50 mg Q8HR ORAL 02/20/20 06:00 05/20/20 05:59 02/25/20 14:28 Insulin Aspart (NovoLOG) BEFORE MEALS AND HS SUBQ 02/24/20 16:30 05/24/20 16:29 02/25/20 16:42 Levothyroxine Sodium (Synthroid) 75 mcg 0630 ORAL 02/21/20 09:00 03/22/20 08:59 02/25/20 06:08 Metformin HCl (Glucophage) 850 mg DAILY ORAL 02/20/20 09:00 03/21/20 08:59 02/25/20 08:04 Metoprolol Succinate (Toprol XL) 100 mg DAILY ORAL 02/25/20 09:00 05/25/20 08:59 02/25/20 08:31 Pantoprazole (Protonix) 40 mg DAILY ORAL 02/20/20 09:00 03/21/20 08:59 02/25/20 08:03 Edwina Gan MD Feb 25, 2020 19:21
[2020-02-25 20:00] VITALS: BP 137/70
[2020-02-25] MEDS: cefTRIAXone 1 GM in D5W 50 ML IVPB SCH (22:58)
[2020-02-26] VITALS: BP 140/73
[2020-02-26] MEDS: Enoxaparin 100mg Inj SUBQ SCH ×2 (00:30→12:00)
--- NOTE | 2020-02-26 00:32 | Cardiology Progress Note ---
Subjective DATE OF SERVICE: Feb 25, 2020 Remains on supplemental oxygen. Remains on full anticoagulation, steroids, as well as anti-viral rx. 2D Echo revealed normal LVEF, no valvular disease, and normal pulmonary artery systolic pressures. Glucose remains high No recurring ventricular ectopy Objective Last 24 Hour Vital Signs Date Time Temp Pulse Resp B/P (MAP) Pulse Ox O2 Delivery O2 Flow Rate FiO2 02/25/20 22:08 153/75 02/25/20 20:20 94 Nasal Cannula 3.0 32 02/25/20 20:00 98.0 80 21 137/70 (92) 100 02/25/20 15:51 97.0 82 18 124/62 (82) 90 02/25/20 15:36 82 02/25/20 14:28 141/72 02/25/20 12:00 97.5 61 20 141/72 (95) 91 02/25/20 12:00 95 02/25/20 09:00 Nasal Cannula 2.0 02/25/20 08:31 99 148/71 02/25/20 08:00 95 02/25/20 08:00 97.9 99 18 148/71 (96) 91 02/25/20 06:07 135/66 02/25/20 04:00 65 02/25/20 04:00 99.0 80 20 135/66 (89) 95 02/25/20 02:48 98.9 HEENT: normal ENT inspection RHYTHM: ST LUNGS: bilateral rhonchi CARDIAC: regular rhythm, normal S1 and S2, no gallop, tachycardia ABDOMEN: normal bowel sounds, non tender, soft, no organomegaly EXTREMITIES: non-tender, No edema Laboratory Tests Test 02/25/20 08:45 02/25/20 11:41 02/25/20 16:21 White Blood Count 6.5 K/UL (4.8-10.8) Red Blood Count 3.13 M/UL (4.20-5.40) L Hemoglobin 10.8 G/DL (12.0-16.0) L Hematocrit 34.9 % (37.0-47.0) L Mean Corpuscular Volume 112 FL (80-99) H Mean Corpuscular Hemoglobin 34.7 PG (27.0-31.0) H Mean Corpuscular Hemoglobin Concent 31.0 G/DL (32.0-36.0) L Red Cell Distribution Width 18.5 % (11.6-14.8) H Platelet Count 329 K/UL (150-450) Mean Platelet Volume 8.4 FL (6.5-10.1) Neutrophils (%) (Auto) % (45.0-75.0) Lymphocytes (%) (Auto) % (20.0-45.0) Monocytes (%) (Auto) % (1.0-10.0) Eosinophils (%) (Auto) % (0.0-3.0) Basophils (%) (Auto) % (0.0-2.0) Differential Total Cells Counted 100 Neutrophils % (Manual) 70 % (45-75) Lymphocytes % (Manual) 13 % (20-45) L Monocytes % (Manual) 17 % (1-10) H Eosinophils % (Manual) 0 % (0-3) Basophils % (Manual) 0 % (0-2) Band Neutrophils 0 % (0-8) Nucleated Red Blood Cells 3 /100 WBC Platelet Estimate Adequate Platelet Morphology Normal Hypochromasia 1+ Anisocytosis 2+ Macrocytosis 2+ Sodium Level 135 MMOL/L (136-145) L Potassium Level 3.8 MMOL/L (3.5-5.1) Chloride Level 101 MMOL/L (98-107) Carbon Dioxide Level 28 MMOL/L (21-32) Anion Gap 6 mmol/L (5-15) Blood Urea Nitrogen 27 mg/dL (7-18) H Creatinine 0.9 MG/DL (0.55-1.30) Estimat Glomerular Filtration Rate > 60 mL/min (>60) Glucose Level 303 MG/DL (74-106) H Calcium Level 8.6 MG/DL (8.5-10.1) Total Bilirubin 0.8 MG/DL (0.2-1.0) Direct Bilirubin 0.2 MG/DL (0.0-0.3) Aspartate Amino Transf (AST/SGOT) 26 U/L (15-37) Alanine Aminotransferase (ALT/SGPT) 24 U/L (12-78) Alkaline Phosphatase 82 U/L (46-116) Total Protein 6.5 G/DL (6.4-8.2) Albumin 2.7 G/DL (3.4-5.0) L Globulin 3.8 g/dL Albumin/Globulin Ratio 0.7 (1.0-2.7) L POC Whole Blood Glucose Pending Pending Assessment/Plan Assessment/Plan COVID 19 Pneumonia Non sustained ventricular tachycardia ARDS Hypoxia Sinus tachycardia Acute myocardial ischemia/possible NSTE myocardial infarction Hypertension/HHD with labile BP Orthostatic syncope DM poorly controlled with steroids PLAN: Full anticoagulation Maintain adequate oral hydration Maintain beta diogenes Antiviral therapy and steroids per PCP Maintenance hydration. Advance metformin. Consider myocardial perfusion scan as outpatient, once COVID19 resolved Bhanu Genao MD Feb 26, 2020 00:31
[2020-02-26 04:00] VITALS: BP 139/79
[2020-02-26] MEDS: HydrALAZINE 50mg tab ORAL SCH ×2 (05:43→13:45)
[2020-02-26] MEDS: NovoLOG Insulin Flexpen SUBQ SCH ×2 (06:25→11:30)
[2020-02-26 07:10] LABS: HEMATOCRIT 34.2 % (37.0-47.0); HEMOGLOBIN 10.8 G/DL (12.0-16.0); MEAN CORPUSCULAR VOLUME 112 FL (80-99); PLATELET COUNT 335 K/UL (150-450); RED BLOOD COUNT 3.05 M/UL (4.20-5.40); RED CELL DISTRIBUTION WIDTH 19.3 % (11.6-14.8); WHITE BLOOD COUNT 6.4 K/UL (4.8-10.8)
[2020-02-26 07:22] LABS: ALANINE AMINOTRANSFERASE 25 U/L (12-78); ALBUMIN 2.7 G/DL (3.4-5.0); ALBUMIN/GLOBULIN RATIO 0.8 (1.0-2.7); ALKALINE PHOSPHATASE 81 U/L (46-116); ANION GAP 7 mmol/L (5-15); ASPARTATE AMINO TRANSFERASE 26 U/L (15-37); BILIRUBIN,DIRECT 0.3 MG/DL (0.0-0.3); BLOOD UREA NITROGEN 27 mg/dL (7-18); CALCIUM 8.7 MG/DL (8.5-10.1); CARBON DIOXIDE 30 MMOL/L (21-32); CHLORIDE 103 MMOL/L (98-107); CREATININE 0.9 MG/DL (0.55-1.30); POTASSIUM 3.6 MMOL/L (3.5-5.1); SODIUM 139 MMOL/L (136-145)
--- NOTE | 2020-02-26 07:44 | Pulmonology Progress Note ---
Subjective Interval Events: None new Constitutional: Denies: fever HEENT: Repors: no symptoms Respiratory: Reports: no symptoms Cardiovascular: Reports: no symptoms Gastrointestinal/Abdominal: Denies: nausea, vomiting, diarrhea Psychiatric: Denies: depression Skin: Denies: rash Musculoskeletal: Denies: pain Allergies: Coded Allergies: No Known Allergies (Unverified , 02/19/20) Objective Last 24 Hour Vital Signs Date Time Temp Pulse Resp B/P (MAP) Pulse Ox O2 Delivery O2 Flow Rate FiO2 02/26/20 05:43 152/73 02/26/20 04:00 97.7 93 19 139/79 (99) 94 02/26/20 04:00 80 02/26/20 00:00 98.4 92 21 140/73 (95) 99 02/26/20 00:00 89 02/25/20 22:08 153/75 02/25/20 21:00 Nasal Cannula 2.0 02/25/20 20:20 94 Nasal Cannula 3.0 32 02/25/20 20:00 98.0 80 21 137/70 (92) 100 02/25/20 20:00 76 02/25/20 15:51 97.0 82 18 124/62 (82) 90 02/25/20 15:36 82 02/25/20 14:28 141/72 02/25/20 12:00 97.5 61 20 141/72 (95) 91 02/25/20 12:00 95 02/25/20 09:00 Nasal Cannula 2.0 02/25/20 08:31 99 148/71 02/25/20 08:00 95 02/25/20 08:00 97.9 99 18 148/71 (96) 91 Intake and Output 02/25/20 02/26/20 19:00 07:00 Intake Total 650 ml 770 ml Balance 650 ml 770 ml Intake Oral 400 ml 720 ml IV Total 250 ml 50 ml # Voids 1 4 # Bowel Movements 2 1 General Appearance: no acute distress HEENT: normocephalic Respiratory: chest wall non-tender, lungs clear Cardiovascular: normal peripheral pulses Abdomen: normal bowel sounds Laboratory Tests 02/25/20 08:45: White Blood Count 6.5, Red Blood Count 3.13L, Hemoglobin 10.8L, Hematocrit 34.9L , Mean Corpuscular Volume 112H, Mean Corpuscular Hemoglobin 34.7H, Mean Corpuscular Hemoglobin Concent 31.0L, Red Cell Distribution Width 18.5H, Platelet Count 329, Mean Platelet Volume 8.4, Neutrophils (%) (Auto) , Lymphocytes (%) (Auto) , Monocytes (%) (Auto) , Eosinophils (%) (Auto) , Basophils (%) (Auto) , Differential Total Cells Counted 100, Neutrophils % ( Manual) 70, Lymphocytes % (Manual) 13L, Monocytes % (Manual) 17H, Eosinophils % (Manual) 0, Basophils % (Manual) 0, Band Neutrophils 0, Nucleated Red Blood Cells 3, Platelet Estimate Adequate, Platelet Morphology Normal, Hypochromasia 1 +, Anisocytosis 2+, Macrocytosis 2+, Sodium Level 135L, Potassium Level 3.8, Chloride Level 101, Carbon Dioxide Level 28, Anion Gap 6, Blood Urea Nitrogen 27H, Creatinine 0.9, Estimat Glomerular Filtration Rate > 60, Glucose Level 303H , Calcium Level 8.6, Total Bilirubin 0.8, Direct Bilirubin 0.2, Aspartate Amino Transf (AST/SGOT) 26, Alanine Aminotransferase (ALT/SGPT) 24, Alkaline Phosphatase 82, Total Protein 6.5, Albumin 2.7L, Globulin 3.8, Albumin/Globulin Ratio 0.7L 02/25/20 11:41: POC Whole Blood Glucose [Pending] 02/25/20 16:21: POC Whole Blood Glucose [Pending] 02/26/20 05:45: POC Whole Blood Glucose [Pending] 02/26/20 06:46: White Blood Count 6.4, Red Blood Count 3.05L, Hemoglobin 10.8L, Hematocrit 34.2L , Mean Corpuscular Volume 112H, Mean Corpuscular Hemoglobin 35.2H, Mean Corpuscular Hemoglobin Concent 31.4L, Red Cell Distribution Width 19.3H, Platelet Count 335, Mean Platelet Volume 11.2H, Neutrophils (%) (Auto) , Lymphocytes (%) (Auto) , Monocytes (%) (Auto) , Eosinophils (%) (Auto) , Basophils (%) (Auto) , Neutrophils % (Manual) [Pending], Lymphocytes % (Manual) [Pending], Platelet Estimate [Pending], Platelet Morphology [Pending], Sodium Level 139, Potassium Level 3.6, Chloride Level 103, Carbon Dioxide Level 30, Anion Gap 7, Blood Urea Nitrogen 27H, Creatinine 0.9, Estimat Glomerular Filtration Rate > 60, Glucose Level 221H, Calcium Level 8.7, Magnesium Level 1.8 , Total Bilirubin 1.0, Direct Bilirubin 0.3, Aspartate Amino Transf (AST/SGOT) 26, Alanine Aminotransferase (ALT/SGPT) 25, Alkaline Phosphatase 81, Pro-B-Type Natriuretic Peptide 1122H, Total Protein 6.3L, Albumin 2.7L, Globulin 3.6, Albumin/Globulin Ratio 0.8L Current Medications Medications (Trade) Dose Ordered Sig/Luis Miguel Route PRN Reason Start Time Stop Time Status Last Admin Dose Admin Acetaminophen (Tylenol) 650 mg Q6H PRN ORAL Temp >100.5 02/21/20 11:45 03/22/20 11:44 02/25/20 12:13 Ceftriaxone Sodium 1 gm/ Dextrose 50 ml @ 100 mls/hr Q24H IVPB 02/20/20 23:00 02/27/20 22:59 02/25/20 22:58 Dexamethasone (Decadron) 6 mg DAILY ORAL 02/21/20 11:45 03/22/20 11:44 02/25/20 08:05 Dextrose (Dextrose 50%) 25 ml Q30M PRN IV Hypoglycemia 02/24/20 16:45 05/24/20 16:44 Dextrose (Dextrose 50%) 50 ml Q30M PRN IV Hypoglycemia 02/24/20 16:45 05/24/20 16:44 Doxycycline Monohydrate (Doxycycline Monohydrate) 100 mg EVERY 12 HOURS ORAL 02/20/20 21:00 02/27/20 20:59 02/25/20 20:44 Enoxaparin Sodium (Lovenox) 90 mg Q12H SUBQ 02/20/20 12:00 05/20/20 11:59 02/26/20 00:30 Hydralazine HCl (Apresoline) 50 mg Q8HR ORAL 02/20/20 06:00 05/20/20 05:59 02/26/20 05:43 Insulin Aspart (NovoLOG) BEFORE MEALS AND HS SUBQ 02/24/20 16:30 05/24/20 16:29 02/26/20 06:25 Levothyroxine Sodium (Synthroid) 75 mcg 0630 ORAL 02/21/20 09:00 03/22/20 08:59 02/26/20 06:25 Metformin HCl (Glucophage) 850 mg BID ORAL 02/26/20 09:00 03/27/20 08:59 Metoprolol Succinate (Toprol XL) 100 mg DAILY ORAL 02/25/20 09:00 05/25/20 08:59 02/25/20 08:31 Pantoprazole (Protonix) 40 mg DAILY ORAL 02/20/20 09:00 03/21/20 08:59 02/25/20 08:03 Assessment/Plan Assessment/Plan IMPRESSION: 1. COVID-19 pneumonia. 2. Elevated D-dimer. 3. Diabetes mellitus. 4. Hypertension. 5. Left elbow fracture. 6. Troponin leak. DISCUSSION: Continue full-dose Lovenox given high D-dimer and COVID-19 pneumonia. Seen by ID regarding use of Decadron and remdesivir. Continue current medications and care. I will follow carefully. she is currently saturating 91-92% on 2 L of nasal oxygen Course of decadron and remdesivir completed Final day of IV abx today Begin dc planning Seen by cardiology. Flaquito Bradley M.D. Flaquito Bradley MD Feb 26, 2020 07:44
[2020-02-26 08:00] VITALS: BP 134/82
[2020-02-26] MEDS: Metoprolol Succinate XL 100mg tab ORAL SCH (08:51)
[2020-02-26] MEDS: Doxycycline Monohydrate 100mg ORAL SCH (08:51)
--- NOTE | 2020-02-26 10:36 | Diagnostic Imaging Report ---
Procedure: XRAY Chest 1v Reason for study: Shortness of breath. Comparison films: 02/21/2020. FINDINGS: A single one view chest is obtained. Vascularity is normal. There are bilateral hazy peripheral infiltrates. Consider viral pneumonitis. Cardiac and mediastinal silhouette are within normal limits. CP angles are sharp. Aorta is tortuous. IMPRESSION: Bilateral hazy peripheral infiltrates. Consider viral pneumonitis.
[2020-02-26 12:00] VITALS: BP 148/70
[2020-02-26 13:45] VITALS: BP 148/70
[2020-02-26] MEDS ORDERED: cefTRIAXone 1 GM in NS 55 ML IVPB SCH (23:00)
--- NOTE | 2020-02-27 02:24 | Cardiology Progress Note ---
Subjective DATE OF SERVICE: Feb 26, 2020 Now without distress 2D Echo revealed normal LVEF, no valvular disease, and normal pulmonary artery systolic pressures. Glucose levels improved Objective Last 24 Hour Vital Signs Date Time Temp Pulse Resp B/P (MAP) Pulse Ox O2 Delivery O2 Flow Rate FiO2 02/26/20 13:45 148/70 02/26/20 12:00 97.8 90 18 148/70 (96) 94 02/26/20 12:00 85 02/26/20 09:40 93 Nasal Cannula 3.0 32 02/26/20 09:00 Nasal Cannula 2.0 02/26/20 08:51 80 148/73 02/26/20 08:00 97.9 93 19 134/82 (99) 94 02/26/20 08:00 109 02/26/20 05:43 152/73 02/26/20 04:00 97.7 93 19 139/79 (99) 94 02/26/20 04:00 80 HEENT: normal ENT inspection RHYTHM: ST LUNGS: bilateral rhonchi CARDIAC: regular rhythm, normal S1 and S2, no gallop, tachycardia ABDOMEN: normal bowel sounds, non tender, soft, no organomegaly EXTREMITIES: non-tender, No edema Laboratory Tests Test 02/26/20 05:45 02/26/20 06:46 POC Whole Blood Glucose Pending White Blood Count 6.4 K/UL (4.8-10.8) Red Blood Count 3.05 M/UL (4.20-5.40) L Hemoglobin 10.8 G/DL (12.0-16.0) L Hematocrit 34.2 % (37.0-47.0) L Mean Corpuscular Volume 112 FL (80-99) H Mean Corpuscular Hemoglobin 35.2 PG (27.0-31.0) H Mean Corpuscular Hemoglobin Concent 31.4 G/DL (32.0-36.0) L Red Cell Distribution Width 19.3 % (11.6-14.8) H Platelet Count 335 K/UL (150-450) Mean Platelet Volume 11.2 FL (6.5-10.1) H Neutrophils (%) (Auto) % (45.0-75.0) Lymphocytes (%) (Auto) % (20.0-45.0) Monocytes (%) (Auto) % (1.0-10.0) Eosinophils (%) (Auto) % (0.0-3.0) Basophils (%) (Auto) % (0.0-2.0) Differential Total Cells Counted 100 Neutrophils % (Manual) 76 % (45-75) H Lymphocytes % (Manual) 13 % (20-45) L Monocytes % (Manual) 11 % (1-10) H Eosinophils % (Manual) 0 % (0-3) Basophils % (Manual) 0 % (0-2) Band Neutrophils 0 % (0-8) Nucleated Red Blood Cells 1 /100 WBC Platelet Estimate Adequate Platelet Morphology Normal Hypochromasia 1+ Anisocytosis 2+ Macrocytosis 2+ Sodium Level 139 MMOL/L (136-145) Potassium Level 3.6 MMOL/L (3.5-5.1) Chloride Level 103 MMOL/L (98-107) Carbon Dioxide Level 30 MMOL/L (21-32) Anion Gap 7 mmol/L (5-15) Blood Urea Nitrogen 27 mg/dL (7-18) H Creatinine 0.9 MG/DL (0.55-1.30) Estimat Glomerular Filtration Rate > 60 mL/min (>60) Glucose Level 221 MG/DL (74-106) H Calcium Level 8.7 MG/DL (8.5-10.1) Magnesium Level 1.8 MG/DL (1.8-2.4) Total Bilirubin 1.0 MG/DL (0.2-1.0) Direct Bilirubin 0.3 MG/DL (0.0-0.3) Aspartate Amino Transf (AST/SGOT) 26 U/L (15-37) Alanine Aminotransferase (ALT/SGPT) 25 U/L (12-78) Alkaline Phosphatase 81 U/L (46-116) Pro-B-Type Natriuretic Peptide 1122 pg/mL (0-125) H Total Protein 6.3 G/DL (6.4-8.2) L Albumin 2.7 G/DL (3.4-5.0) L Globulin 3.6 g/dL Albumin/Globulin Ratio 0.8 (1.0-2.7) L Assessment/Plan Assessment/Plan COVID 19 Pneumonia Non sustained ventricular tachycardia ARDS Hypoxia Sinus tachycardia Acute myocardial ischemia/possible NSTE myocardial infarction Hypertension/HHD with labile BP Orthostatic syncope DM poorly controlled with steroids PLAN: Anticoagulation per PCP Maintain adequate oral hydration Maintain beta diogenes Antiviral therapy and steroids per PCP Maintenance hydration. Advance metformin as needed. Consider myocardial perfusion scan as outpatient, once COVID19 resolved Bhanu Genao MD Feb 27, 2020 02:24
--- NOTE | 2020-02-28 16:22 | Discharge Summary ---
Discharge Summary Discharge Summary _ DATE OF ADMISSION: 02/19/2020 DATE OF DISCHARGE: 02/26/2020 DISCHARGED BY: Dr. Shanika Bradley CONSULTANTS: Dr. Edwina Johnson BRIEF HOSPITAL COURSE: The patient is a 74-year-old female, with history of hypertension and diabetes. She presented to an outside hospital the week prior due to a syncopal episode. She suffered a nonoperative fracture of her left arm and was placed in a sling. She again had a repeat syncopal episode. She denied any chest pain. She felt dizzy and lightheaded upon standing. Upon evaluation at ED, patient was noted to be tachycardic and was febrile. Rapid COVID testing was positive. D-dimer was elevated to 17. She had evidence of urinary tract infection and was started on antibiotics. She was also given steroids and Lovenox. Troponin was intermediate. EKG showed nonspecific ST changes. She was given aspirin. She was admitted for evaluation of syncope and covid 19. She was admitted to monitored floor. Respiratory status was monitored. She was treated empirically with ceftriaxone and azithromycin. She was given Lovenox for DVT prophylaxis. She was given beta-diogenes and was continued on antiplatelet therapy. Blood glucose was monitored. She was given insulin sliding scale. Patient remained to require high flow oxygen. Patient was eventually started on remdesivir. Antibiotic was changed to ceftriaxone and doxycycline. She was continued on dexamethasone. Echocardiogram revealed normal LVEF, no valvular disease, normal pulmonary artery systolic pressure. Urine culture did not isolate any growth. Blood culture did not isolate any growth. Patient completed course of remdesevir and Decadron. Patient completed antibiotic treatment. Patient was cleared for discharge and was advised to undergo myocardial perfusion scan as outpatient, once COVID-19 resolved. FINAL DIAGNOSES: COVID-19 pneumonia Nonsustained ventricular tachycardia Hypoxia Sinus tachycardia Acute myocardial ischemia/possible non-ST elevated [place] Hypertensive heart disease with labile BP Orthostatic syncope Diabetes mellitus poorly controlled with steroids. Left elbow fracture, present on admission DISPOSITION: Patient was discharged home. DISCHARGE MEDICATIONS: Refer to Discharge Medication List. DISCHARGE INSTRUCTIONS: Follow-up in a week. I have been assigned to complete a discharge summary on this account, I was not involved with the patient's management.--TWIN Gibbs Jacqueline Robles NP Feb 28, 2020 16:22
== END 2020-02-26 15:30 | disposition home or self-care (01) | DRG 177 ==
LOC: EDBD 22:06 → EMR 22:25 → 2E 23:28 → EDBEDREQ 02-20 00:26
DX: U07.1 COVID-19 (principal); J12.89 Other viral pneumonia; J80 Acute respiratory distress syndrome; I21.4 Non-ST elevation (NSTEMI) myocardial infarction; N39.0 Urinary tract infection, site not specified; I24.9 Acute ischemic heart disease, unspecified; I47.2 Ventricular tachycardia; E11.65 Type 2 diabetes mellitus with hyperglycemia; R09.02 Hypoxemia; S42.402D Unspecified fracture of lower end of left humerus, subsequent encounter for fracture with routine healing; X58.XXXD Exposure to other specified factors, subsequent encounter; I95.1 Orthostatic hypotension; Z79.4 Long term (current) use of insulin; I11.9 Hypertensive heart disease without heart failure
CPT/HCPCS: 36415; 71045; 80048; 80053; 81003; 82248; 82607; 82728; 82746; 82962; 83605; 83735; 83880; 84484; 85007; 85025; 85379; 86140; 87040; 87086; 93005; 93306; 96361; 96365; 96375; 99291; J1815; J7030; J8499; U0002